=== PATIENT | male | born 1940 | race Caucasian/White ===

== ENCOUNTER 2016-10-02 08:09 | Day surgery (SDC) | payer MEDICARE, MEDICAID ==
[2016-10-02 09:25] VITALS: BMI 30.7
[2016-10-02] MEDS ORDERED: Lactated Ringer's 500 ML IV ONE (11:59)
[2016-10-02] MEDS ORDERED: Propofol 10 mg/ml Inj (20 ML) ONE (12:01)
[2016-10-02 12:09] VITALS: O2SAT 100
[2016-10-02] MEDS ORDERED: Lactated Ringer's 1,000 ML IV SCH (12:15)
[2016-10-02 12:36] VITALS: TEMP 97.4
[2016-10-02 14:54] VITALS: BP 138/79; PULSE 97; RESP 13
== END 2016-10-02 14:50 | disposition home or self-care (01) ==
LOC: C.ENDO 08:09
PROVIDERS: ATTEND Internal Medicine Gastroenterology
DX: K59.00 Constipation, unspecified (principal); K64.8 Other hemorrhoids
CPT/HCPCS: 45378; 82948; J2704; J7120

== ENCOUNTER 2017-04-30 17:40 | Inpatient (IN) | payer MEDICARE, MEDICAID ==
[2017-04-30 17:42] VITALS: BMI 30.7
[2017-04-30] MEDS ORDERED: Sodium Chloride 0.9% 1,000 ML IV ONE (18:35)
[2017-04-30] MEDS ORDERED: Sodium Chloride 0.9% 1,000 ML ONE (18:48)
[2017-04-30 18:54] LABS: EOS # 0.1 K/uL (0.0-0.7); MEAN PLATELET VOLUME 13.3 fL (7.2-11.7); MONO # 0.4 K/uL (0.0-0.8)
[2017-04-30 18:56] LABS: RBC URINE < 1 /hpf (0-3); URINE BILIRUBIN NEGATIVE (NEGATIVE); URINE BLOOD NEGATIVE (NEGATIVE); URINE COLOR Yellow (YELLOW); URINE GLUCOSE (UA) NORMAL (Normal); URINE KETONE NEGATIVE (NEGATIVE); URINE LEUKOCYTE ESTERASE NEG Leu/uL (Negative); URINE PROTEIN NEGATIVE (NEGATIVE); WBC URINE 3 /hpf (0-5)
--- NOTE | 2017-04-30 18:57 | C.PDOC ---
History Of Present Illness 76 y/o male with PMHx of A-fib and DM [facility] Rodriguez with complaints of generalized weakness and lethargy. Patient had labs 2 days ago and hemoglobin was 9, today hemoglobin is 7.5 and he was sent for further evaluation. Patient reports to be sob when he lies flat but denies any chest or abdominal pain. He has chronic constipation but reports normal po intake. No other complaints at this time. Time Seen by Provider: 04/30/17 18:24 Chief Complaint (Nursing): Abnormal Labs History Per: Patient History/Exam Limitations: no limitations Onset/Duration Of Symptoms: Days Current Symptoms Are (Timing): Still Present Past Medical History Reviewed: Historical Data, Nursing Documentation, Vital Signs Vital Signs: Last Vital Signs Temp 97.8 F 04/30/17 17:48 Pulse 105 H 04/30/17 20:35 Resp 29 H 04/30/17 20:35 BP 101/66 04/30/17 20:35 Pulse Ox 100 04/30/17 20:35 - Medical History PMH: Anxiety, Bipolar Disorder, CAD, Cardia Arrhythmia (A FIB), CHF, COPD, Depression, HTN, Hypercholesterolemia, Osteoporosis, Sleep Apnea Surgical History: No Surg Hx - [facility] Procedures INJECT/INFUSE NEC (10/08/14) Family History: States: No Known Family Hx - Social History Hx Alcohol Use: No Hx Substance Use: No Review Of Systems Constitutional: Negative for: Fever, Chills Eyes: Negative for: Vision Change Gastrointestinal: Negative for: Nausea, Vomiting Neurological: Positive for: Weakness. Negative for: Headache, Dizziness Physical Exam - Physical Exam Appears: Non-toxic, No Acute Distress Skin: Warm, Dry, Pale Head: Atraumatic, Normacephalic Eye(s): bilateral: Normal Inspection, EOMI Oral Mucosa: Moist Neck: Normal ROM, Supple Chest: Symmetrical Cardiovascular: Rhythm Irregular, Other (tachycardic) Respiratory: Rales (right side basilar), No Rhonchi, No Wheezing Gastrointestinal/Abdominal: Soft, No Tenderness, No Distention, No Guarding, No Rebound Rectal: Other (black hard stool in rectal vault) Extremity: No Deformity, No Swelling, Other (venous stasis bilat legs, +stasis pigmentation) Extremity: Bilateral: Normal ROM Pulses: Left Dorsalis Pedis: Normal, Right Dorsalis Pedis: Normal Neurological/Psych: Oriented x3, Normal Motor, Normal Sensation ED Course And Treatment - Laboratory Results Result Diagrams: 04/30/17 18:49 04/30/17 18:49 Lab Interpretation: Abnormal (Hgb 7.3, BUN 34, Lactate 2.6, Stool positive for occult blood) ECG: Interpreted By Me ECG Rhythm: Atrial Fibrillation, Atrial Flutter ECG Interpretation: Abnormal Rate From EC O2 Sat by Pulse Oximetry: 100 (RA) Pulse Ox Interpretation: Normal - Radiology CXR: Interpreted by Me CXR Interpretation: Yes: Other (right pleural effusion, elevated left hemidiaphragm) Reevaluation Time: 21:17 Reassessment Condition: Unchanged - Physician Consult Information Physician Contacted: Carlos Pleitez Outcome Of Conversation: Patient to be admitted for GI bleeding with anemia. Evaluation by assistant department manager is requested. Case reviewed with Dr Argueta Disposition - Disposition Disposition: HOSPITALIZED Disposition Time: 21:18 Condition: FAIR - POA Present On Arrival: None - Clinical Impression Clinical Impression: Anemia due to GI blood loss - Scribe Statement The provider has reviewed the documentation as recorded by the Allisonibbj Lou All medical record entries made by the Allisonibbj were at my direction and personally dictated by me. I have reviewed the chart and agree that the record accurately reflects my personal performance of the history, physical exam, medical decision making, and the department course for this patient. I have also personally directed, reviewed, and agree with the discharge instructions and disposition.
[2017-04-30 19:02] LABS: BASO % 0.6 % (0.0-2.0); EOS % 1.8 % (0.0-4.0); HEMATOCRIT 22.2 % (35.0-51.0); LYMPH % 13.7 % (20.0-40.0); MEAN CORPUSCULAR HEMOGLOBIN 31.7 pg (27.0-31.0); MONO % 5.3 % (0.0-10.0); NRBC % 0.7 % (0.0-2.0); RED CELL DISTRIBUTION WIDTH 15.7 % (11.5-14.5); WHITE BLOOD COUNT 7.6 K/uL (4.8-10.8)
[2017-04-30 19:02] LABS: VENOUS BLOOD GAS BASE EXCESS 3.2 mmol/L (0.0-2.0); VENOUS BLOOD GAS PCO2 42 mmHg (40-60); VENOUS BLOOD PH 7.43 (7.32-7.43)
[2017-04-30 19:03] LABS: CHLORIDE 104 mmol/L (98-107)
[2017-04-30 19:04] LABS: POTASSIUM 4.4 mmol/L (3.6-5.2); SODIUM 137 mmol/L (132-148)
[2017-04-30 19:06] LABS: ALKALINE PHOSPHATASE 49 U/L (38-126); AST/SGOT 46 U/L (17-59); BILIRUBIN,TOTAL 0.7 mg/dL (0.2-1.3); BLOOD UREA NITROGEN 34 mg/dL (9-20); CARBON DIOXIDE 24 mmol/L (22-30); GFR AFRICAN-AMERICAN > 60; GLUCOSE,RANDOM 88 mg/dL (75-110); TOTAL PROTEIN 5.6 g/dL (6.3-8.3)
[2017-04-30 19:07] LABS: ALT/SGPT 78 U/L (21-72); CALCIUM 8.4 mg/dl (8.6-10.4)
[2017-04-30] MEDS ORDERED: Pantoprazole 40 mg EC Tab PO STA (21:57)
--- NOTE | 2017-04-30 22:29 | CP.PCM.CON ---
History of Present Illness - History of Present Illness History of Present Illness: called by ER for icu eval 76 y/o male with PMHx of A-fib and DM [facility] Rodriguez with complaints of generalized weakness and lethargy. Patient had labs 2 days ago and hemoglobin was 9, today hemoglobin is 7.5 and he was sent for further evaluation. pt c/o weakness for 1 week he is mostly bedridden not walking he goes to on bed using bedpan c/o severe constipation [place] er evaluated and [place] done showing dark stool and +ve guiac he has no abd pain no nausea no vomiting poorly eating multiple medical problems PMH:Anxiety, Bipolar Disorder, CAD, Cardia Arrhythmia (A FIB), CHF, COPD, Depression, HTN, Hypercholesterolemia, Osteoporosis, Sleep Apnea no surgical problems no recent echo pt is being seen [facility] in the [place] medications noted pt was on eliquis 5mg bid also takes naprosyn prn no h/o gi bleed in the past ROS noted /e: pt is comfortable no distress Temp Pulse Resp BP Pulse Ox 97.8 F 105 H 29 H 101/66 100 04/30/17 17:48 04/30/17 20:35 04/30/17 20:35 04/30/17 20:35 04/30/17 21:19 vitals stable chest good air entry afib abd soft 1+ edema alert and oriented CXR non specific no acute changes noted 04/30/17 18:49 04/30/17 18:49 a/p: pt with afib and multiple medical problems Anxiety, Bipolar Disorder, CAD, Cardia Arrhythmia (A FIB), CHF, COPD, Depression , HTN, Hypercholesterolemia, Osteoporosis, Sleep Apnea and anticoagulation PT and ptt pending no active bleeding now start PPI IV GI eval give 2 units of blood at standard rate recheck H and H GI eval hold anticoagulation and antiplatlets can be managed in the tele. if any decompensation please call ICU reeval Past Patient History - Past Medical History & Family History Past Medical History?: Yes - Past Social History Smoking Status: Never Smoked - CARDIAC Hx Cardia Arrhythmia: Yes (A FIB) Hx Congestive Heart Failure: Yes Hx Hypercholesterolemia: Yes Hx Hypertension: Yes - PULMONARY Hx Chronic Obstructive Pulmonary Disease (COPD): Yes Hx Sleep Apnea: Yes - NEUROLOGICAL HX Cerebrovascular Accident: No Hx Transient Ischemic Attacks (TIA): No - HEENT Hx HEENT Problems: Yes (SIDNEY.) - HEMATOLOGICAL/ONCOLOGICAL Hx Blood Transfusions: No - INTEGUMENTARY Hx Dermatological Problems: Yes Hx Cellulitis: Yes - MUSCULOSKELETAL/RHEUMATOLOGICAL Hx Osteoporosis: Yes - GASTROINTESTINAL Hx Gastrointestinal Disorders: Yes Hx Hemorrhoids: Yes - GENITOURINARY/GYNECOLOGICAL Hx Genitourinary Disorders: Yes Hx Prostate Problems: Yes (BENIGN PROSTATIC HYPERPLASIA) - PSYCHIATRIC Hx Anxiety: Yes Hx Bipolar Disorder: Yes Hx Depression: Yes Hx Substance Use: No - SURGICAL HISTORY Hx Surgeries: No - ANESTHESIA Hx Anesthesia: No (IV SEDATION ONLY) Hx Anesthesia Reactions: No Hx Malignant Hyperthermia: No Meds Allergies/Adverse Reactions: Allergies Allergy/AdvReac Type Severity Reaction Status Date / Time No Known Allergies Allergy Verified 10/02/16 09:25 - Medications Medications: Current Medications Pantoprazole Sodium (Protonix Ec Tab) 40 mg PO BID CUCO Results - Vital Signs Recent Vital Signs: Last Vital Signs Temp 97.8 F 04/30/17 17:48 Pulse 105 H 04/30/17 20:35 Resp 29 H 04/30/17 20:35 BP 101/66 04/30/17 20:35 Pulse Ox 100 04/30/17 21:19 - Labs Result Diagrams: 04/30/17 18:49 04/30/17 18:49 Labs: Laboratory Results - last 24 hr 04/30/17 04/30/17 04/30/17 18:01 18:49 18:49 WBC 7.6 RBC 2.31 L Hgb 7.3 L Hct 22.2 L MCV 96.0 H MCH 31.7 H MCHC 33.0 RDW 15.7 H Plt Count 115 L MPV 13.3 H Neut % (Auto) 78.6 H Lymph % (Auto) 13.7 L [place] % (Auto) 5.3 Eos % (Auto) 1.8 Baso % (Auto) 0.6 Neut # 6.0 Lymph # 1.0 [place] # 0.4 Eos # 0.1 Baso # 0.0 Differential Comment pO2 VBG pH VBG pCO2 VBG HCO3 VBG Total CO2 VBG O2 Sat (Calc) VBG Base Excess VBG Potassium Glucose Lactate Sodium 137 Potassium 4.4 Chloride 104 Carbon Dioxide 24 Anion Gap 13 BUN 34 H Creatinine 0.9 Est GFR ( Amer) > 60 Est GFR (Non-Af Amer) > 60 POC Glucose (mg/dL) 119 H Random Glucose 88 Calcium 8.4 L Total Bilirubin 0.7 AST 46 ALT 78 H Alkaline Phosphatase 49 Total Protein 5.6 L Albumin 2.8 L Globulin 2.8 Albumin/Globulin Ratio 1.0 Venous Blood Potassium Urine Color Urine Clarity Urine pH Ur Specific [place] Urine Protein Urine Glucose (UA) Urine Ketones Urine Blood Urine Nitrate Urine Bilirubin Urine Urobilinogen Ur Leukocyte Esterase Urine WBC (Auto) Urine RBC (Auto) Stool Occult Blood Blood Type Blood Type Confirm Antibody Screen 04/30/17 04/30/17 04/30/17 18:49 18:49 18:55 WBC RBC Hgb Hct MCV MCH MCHC RDW Plt Count MPV Neut % (Auto) Lymph % (Auto) [place] % (Auto) Eos % (Auto) Baso % (Auto) Neut # Lymph # [place] # Eos # Baso # Differential Comment pO2 42 VBG pH 7.43 VBG pCO2 42 VBG HCO3 26.9 VBG Total CO2 29.2 H VBG O2 Sat (Calc) 83.7 H VBG Base Excess 3.2 H VBG Potassium 5.9 H Glucose 98 Lactate 2.6 H Sodium 140.0 Potassium Chloride 113.0 H Carbon Dioxide Anion Gap BUN Creatinine Est GFR ( Amer) Est GFR (Non-Af Amer) POC Glucose (mg/dL) Random Glucose Calcium Total Bilirubin AST ALT Alkaline Phosphatase Total Protein Albumin Globulin Albumin/Globulin Ratio Venous Blood Potassium 5.9 H Urine Color Yellow Urine Clarity Clear Urine pH 5.0 Ur Specific [place] 1.026 Urine Protein Negative Urine Glucose (UA) Normal Urine Ketones Negative Urine Blood Negative Urine Nitrate Negative Urine Bilirubin Negative Urine Urobilinogen 2.0 Ur Leukocyte Esterase Neg Urine WBC (Auto) 3 Urine RBC (Auto) < 1 Stool Occult Blood Blood Type A POSITIVE Blood Type Confirm A POSITIVE Antibody Screen Negative 04/30/17 19:43 WBC RBC Hgb Hct MCV MCH MCHC RDW Plt Count MPV Neut % (Auto) Lymph % (Auto) [place] % (Auto) Eos % (Auto) Baso % (Auto) Neut # Lymph # [place] # Eos # Baso # Differential Comment pO2 VBG pH VBG pCO2 VBG HCO3 VBG Total CO2 VBG O2 Sat (Calc) VBG Base Excess VBG Potassium Glucose Lactate Sodium Potassium Chloride Carbon Dioxide Anion Gap BUN Creatinine Est GFR ( Amer) Est GFR (Non-Af Amer) POC Glucose (mg/dL) Random Glucose Calcium Total Bilirubin AST ALT Alkaline Phosphatase Total Protein Albumin Globulin Albumin/Globulin Ratio Venous Blood Potassium Urine Color Urine Clarity Urine pH Ur Specific [place] Urine Protein Urine Glucose (UA) Urine Ketones Urine Blood Urine Nitrate Urine Bilirubin Urine Urobilinogen Ur Leukocyte Esterase Urine WBC (Auto) Urine RBC (Auto) Stool Occult Blood Positive H Blood Type Blood Type Confirm Antibody Screen
--- NOTE | 2017-04-30 22:47 | CP.PCM.HP ---
<Monique NiceValentina - Last Filed: 04/30/17 23:12> History of Present Illness - History of Present Illness History of Present Illness: Patient is a 76 years old male with a past medical history of a fib, HTN, CAD, CHF, HLD, who presents to the ED from [facility] with complaints of weakness and a low hemoglobin. Patient was sent in by Dr. Marcus for a hemoglobin of 7.3, which dropped from a hgb of 9.2 two days prior. Patient reports he has been feeling weak and lethargic for approximately 1 week. He says he cannot walk because he feels so weak. Patient also reports feeling dizzy , has shortness of breath that worsens when laying down, abdominal pain for the last 3-4 weeks that worsens with constipation, chronic constipation and black stool. He reports he becomes constipated for days, takes milk of magnesia, then has diarrhea, and continues that cycles. He has not had a bowel movement in 2 days. Patient reports he was recently treated for bilateral leg swelling with water pills about 1 month ago, and since then has lost approximately 40lbs. Patient reports he has been bedridden for the past few weeks due to inability to walk. Currently, the patient denies having chest pain, palpitations, cough, nausea, vomiting, fevers, chills, headaches, and leg pain. PMD: Dr. Marcus PMHx: patient denies, but as per EMR- a fib, HTN, CAD, CHF, HLD, depression bipolar disorder, osteoporisis, COPD SurgHx: denies FamHx: Father-eye cancer, Sisters- Breast cancer SocHx: Former tobacco user, quit 1 month ago ([id number]); former social drinker , denies drug use; LIves are [facility]. Allergies: NKDA Medications: See EMR for extensive list. Present on Admission - Present on Admission Any Indicators Present on Admission: No Review of Systems - Constitutional Constitutional: Fatigue, Lethargy, Weight Loss, Weakness. absent: Chills, Fever , Headache - EENT Eyes: absent: Change in Vision Ears: Dizziness - Cardiovascular Cardiovascular: Dyspnea, Lightheadedness. absent: Chest Pain, Irregular Heart Rhythm, Leg Edema, Palpitations, Rapid Heart Rate - Respiratory Respiratory: Dyspnea. absent: Cough - Gastrointestinal Gastrointestinal: Abdominal Pain (mildline suprapubic tenderness), Change in Stool Character (Black stool), Constipation, Melena. absent: Diarrhea, Nausea, Vomiting - Genitourinary Genitourinary: Urinary Frequency. absent: Dysuria, Hematuria - Neurological Neurological: Dizziness, Weakness. absent: Headaches - Endocrine Endocrine: Fatigue. absent: Palpitations - Hematologic/Lymphatic Hematologic: absent: Easy Bleeding, Easy Bruising Past Patient History - Past Medical History & Family History Past Medical History?: Yes - Past Social History Smoking Status: Never Smoked - CARDIAC Hx Cardia Arrhythmia: Yes (A FIB) Hx Congestive Heart Failure: Yes Hx Hypercholesterolemia: Yes Hx Hypertension: Yes - PULMONARY Hx Chronic Obstructive Pulmonary Disease (COPD): Yes Hx Sleep Apnea: Yes - NEUROLOGICAL HX Cerebrovascular Accident: No Hx Transient Ischemic Attacks (TIA): No - HEENT Hx HEENT Problems: Yes (SIDNEY.) - HEMATOLOGICAL/ONCOLOGICAL Hx Blood Transfusions: No - INTEGUMENTARY Hx Dermatological Problems: Yes Hx Cellulitis: Yes - MUSCULOSKELETAL/RHEUMATOLOGICAL Hx Osteoporosis: Yes - GASTROINTESTINAL Hx Gastrointestinal Disorders: Yes Hx Hemorrhoids: Yes - GENITOURINARY/GYNECOLOGICAL Hx Genitourinary Disorders: Yes Hx Prostate Problems: Yes (BENIGN PROSTATIC HYPERPLASIA) - PSYCHIATRIC Hx Anxiety: Yes Hx Bipolar Disorder: Yes Hx Depression: Yes Hx Substance Use: No - SURGICAL HISTORY Hx Surgeries: No - ANESTHESIA Hx Anesthesia: No (IV SEDATION ONLY) Hx Anesthesia Reactions: No Hx Malignant Hyperthermia: No Meds Allergies/Adverse Reactions: Allergies Allergy/AdvReac Type Severity Reaction Status Date / Time No Known Allergies Allergy Verified 10/02/16 09:25 Physical Exam - Head Exam Head Exam: ATRAUMATIC, NORMAL INSPECTION - Eye Exam Eye Exam: EOMI, Normal appearance. absent: Scleral icterus Pupil Exam: PERRL - ENT Exam ENT Exam: Mucous Membranes Dry - Respiratory Exam Respiratory Exam: Decreased Breath Sounds, Rales (B/L lower lobes), NORMAL BREATHING PATTERN. absent: Rhonchi, Wheezes, Respiratory Distress - Cardiovascular Exam Cardiovascular Exam: Tachycardia, Irregular Rhythm, +S1, +S2. absent: Bradycardia - GI/Abdominal Exam GI & Abdominal Exam: Normal Bowel Sounds, Soft, Tenderness (midline, suprapubic ; "sharp" pain with palpation). absent: Distended, Firm, Guarding, Mass - Rectal Exam Rectal Exam: absent: Black Stool, Bloody Stool, Hemorrhoids - Extremities Exam Extremities exam: Positive for: tenderness (B/L), pedal pulses present. Negative for: normal inspection (chronic skin color changes, mild edema) - Neurological Exam Neurological exam: Alert, Oriented x3 - Psychiatric Exam Psychiatric exam: Normal Affect, Normal Mood - Skin Skin Exam: Dry, Intact, Warm Results - Vital Signs Recent Vital Signs: Last Vital Signs Temp 97.8 F 04/30/17 17:48 Pulse 105 H 04/30/17 20:35 Resp 29 H 04/30/17 20:35 BP 101/66 04/30/17 20:35 Pulse Ox 100 04/30/17 21:19 - Labs Result Diagrams: 04/30/17 18:49 04/30/17 18:49 Labs: Laboratory Results - last 24 hr 04/30/17 04/30/17 04/30/17 18:01 18:49 18:49 WBC 7.6 RBC 2.31 L Hgb 7.3 L Hct 22.2 L MCV 96.0 H MCH 31.7 H MCHC 33.0 RDW 15.7 H Plt Count 115 L MPV 13.3 H Neut % (Auto) 78.6 H Lymph % (Auto) 13.7 L Hall % (Auto) 5.3 Eos % (Auto) 1.8 Baso % (Auto) 0.6 Neut # 6.0 Lymph # 1.0 Hall # 0.4 Eos # 0.1 Baso # 0.0 Differential Comment pO2 VBG pH VBG pCO2 VBG HCO3 VBG Total CO2 VBG O2 Sat (Calc) VBG Base Excess VBG Potassium Glucose Lactate Sodium 137 Potassium 4.4 Chloride 104 Carbon Dioxide 24 Anion Gap 13 BUN 34 H Creatinine 0.9 Est GFR ( Amer) > 60 Est GFR (Non-Af Amer) > 60 POC Glucose (mg/dL) 119 H Random Glucose 88 Calcium 8.4 L Total Bilirubin 0.7 AST 46 ALT 78 H Alkaline Phosphatase 49 Total Protein 5.6 L Albumin 2.8 L Globulin 2.8 Albumin/Globulin Ratio 1.0 Venous Blood Potassium Urine Color Urine Clarity Urine pH Ur Specific [place] Urine Protein Urine Glucose (UA) Urine Ketones Urine Blood Urine Nitrate Urine Bilirubin Urine Urobilinogen Ur Leukocyte Esterase Urine WBC (Auto) Urine RBC (Auto) Stool Occult Blood Blood Type Blood Type Confirm Antibody Screen 04/30/17 04/30/1717 18:49 18:49 18:55 WBC RBC Hgb Hct MCV MCH MCHC RDW Plt Count MPV Neut % (Auto) Lymph % (Auto) Hall % (Auto) Eos % (Auto) Baso % (Auto) Neut # Lymph # Hall # Eos # Baso # Differential Comment pO2 42 VBG pH 7.43 VBG pCO2 42 VBG HCO3 26.9 VBG Total CO2 29.2 H VBG O2 Sat (Calc) 83.7 H VBG Base Excess 3.2 H VBG Potassium 5.9 H Glucose 98 Lactate 2.6 H Sodium 140.0 Potassium Chloride 113.0 H Carbon Dioxide Anion Gap BUN Creatinine Est GFR ( Amer) Est GFR (Non-Af Amer) POC Glucose (mg/dL) Random Glucose Calcium Total Bilirubin AST ALT Alkaline Phosphatase Total Protein Albumin Globulin Albumin/Globulin Ratio Venous Blood Potassium 5.9 H Urine Color Yellow Urine Clarity Clear Urine pH 5.0 Ur Specific [place] 1.026 Urine Protein Negative Urine Glucose (UA) Normal Urine Ketones Negative Urine Blood Negative Urine Nitrate Negative Urine Bilirubin Negative Urine Urobilinogen 2.0 Ur Leukocyte Esterase Neg Urine WBC (Auto) 3 Urine RBC (Auto) < 1 Stool Occult Blood Blood Type A POSITIVE Blood Type Confirm A POSITIVE Antibody Screen Negative 04/30/17 19:43 WBC RBC Hgb Hct MCV MCH MCHC RDW Plt Count MPV Neut % (Auto) Lymph % (Auto) Hall % (Auto) Eos % (Auto) Baso % (Auto) Neut # Lymph # Hall # Eos # Baso # Differential Comment pO2 VBG pH VBG pCO2 VBG HCO3 VBG Total CO2 VBG O2 Sat (Calc) VBG Base Excess VBG Potassium Glucose Lactate Sodium Potassium Chloride Carbon Dioxide Anion Gap BUN Creatinine Est GFR ( Amer) Est GFR (Non-Af Amer) POC Glucose (mg/dL) Random Glucose Calcium Total Bilirubin AST ALT Alkaline Phosphatase Total Protein Albumin Globulin Albumin/Globulin Ratio Venous Blood Potassium Urine Color Urine Clarity Urine pH Ur Specific [place] Urine Protein Urine Glucose (UA) Urine Ketones Urine Blood Urine Nitrate Urine Bilirubin Urine Urobilinogen Ur Leukocyte Esterase Urine WBC (Auto) Urine RBC (Auto) Stool Occult Blood Positive H Blood Type Blood Type Confirm Antibody Screen Assessment & Plan (1) Anemia due to GI blood loss Assessment and Plan: Likely secondary to GI bleed Hgb at admission 7.3 Stool Occult positive HOLD Eliquis Transfused 1 unit PRBC Repeat CBC: f/u results PT/PTT: f/u results NPO Gave 1 dose of Protonix 80mg PO. Start Protonix 40mg PO BID tomorrow GI consulted- Dr. Lopez, help appreciated Status: Acute (2) Abdominal pain Assessment and Plan: Patient c/o midline suprapubic/abdominal pain, described as sharp with palpation and worsens with constipation. Ordered Abdomen/Pelvis CT with PO/IV contrast: f/u results Stool occult positive Status: Acute (3) Atrial fibrillation Assessment and Plan: Home medication: Eliquis 5mg PO BID HOLD Eliquis due to anemia, hbg 7.3, GI bleed. Monitor on telemetry. Cardiology consulted- Dr. Espinal, help appreciated EKG: Atrial fibrillation @90bpm Echo: f/u results Status: Acute (4) Shortness of breath Assessment and Plan: Patient uses 2 pillows and elevates the back of bed at home to decrease symptoms of SOB. CXR: f/u results O2 2L via nasal cannula prn Status: Acute (5) Constipation Assessment and Plan: Continue home medications PRN: * Milk of Magnesia 30mg PO HS PRN * Miralax 17gm PO HS * Lactulose 10gm PO daily * DUlcolax 5mg PO HS Status: Acute (6) Elevated alanine aminotransferase (ALT) level Assessment and Plan: ALT 78 AST 46 Hepatitis panel: f/u results Continue to monitor Status: Acute (7) History of tobacco abuse Assessment and Plan: Continue home medication: Nicoderm patch Status: Acute (8) Hyperlipidemia Assessment and Plan: Continue home medication: Fish oil 1 capsule PO BID Status: Acute (9) History of bipolar disorder Assessment and Plan: Continue home medications for bipolar disorder & depression * Abilify 2mg daily * Depakote 125mg PO TID * Lexapro 10mg PO daily Status: Acute (10) Prophylactic measure Assessment and Plan: SCDs Protonix 40mg PO BID HOLD Eliquis due to GI bleed, hgb 7.3 Keep NPO Fall precaution PT/OT Status: Acute <Carlos Pleitez - Last Filed: 05/01/17 06:21> Results - Vital Signs Recent Vital Signs: Last Vital Signs Temp 97.5 F L 05/01/17 04:25 Pulse 87 05/01/17 04:25 Resp 20 05/01/17 04:25 BP 111/68 05/01/17 04:25 Pulse Ox 97 05/01/17 04:25 - Labs Result Diagrams: 04/30/17 18:49 04/30/17 18:49 Labs: Laboratory Results - last 24 hr 04/30/17 04/30/17 04/30/17 18:01 18:49 18:49 WBC 7.6 RBC 2.31 L Hgb 7.3 L Hct 22.2 L MCV 96.0 H MCH 31.7 H MCHC 33.0 RDW 15.7 H Plt Count 115 L MPV 13.3 H Neut % (Auto) 78.6 H Lymph % (Auto) 13.7 L Hall % (Auto) 5.3 Eos % (Auto) 1.8 Baso % (Auto) 0.6 Neut # 6.0 Lymph # 1.0 Hall # 0.4 Eos # 0.1 Baso # 0.0 Differential Comment PT INR APTT pO2 VBG pH VBG pCO2 VBG HCO3 VBG Total CO2 VBG O2 Sat (Calc) VBG Base Excess VBG Potassium Glucose Lactate Sodium 137 Potassium 4.4 Chloride 104 Carbon Dioxide 24 Anion Gap 13 BUN 34 H Creatinine 0.9 Est GFR ( Amer) > 60 Est GFR (Non-Af Amer) > 60 POC Glucose (mg/dL) 119 H Random Glucose 88 Calcium 8.4 L Total Bilirubin 0.7 AST 46 ALT 78 H Alkaline Phosphatase 49 Total Protein 5.6 L Albumin 2.8 L Globulin 2.8 Albumin/Globulin Ratio 1.0 Venous Blood Potassium Urine Color Urine Clarity Urine pH Ur Specific [place] Urine Protein Urine Glucose (UA) Urine Ketones Urine Blood Urine Nitrate Urine Bilirubin Urine Urobilinogen Ur Leukocyte Esterase Urine WBC (Auto) Urine RBC (Auto) Stool Occult Blood Blood Type Blood Type Confirm Antibody Screen 04/30/17 04/30/17 04/30/17 18:49 18:49 18:55 WBC RBC Hgb Hct MCV MCH MCHC RDW Plt Count MPV Neut % (Auto) Lymph % (Auto) Hall % (Auto) Eos % (Auto) Baso % (Auto) Neut # Lymph # Hall # Eos # Baso # Differential Comment PT INR APTT pO2 42 VBG pH 7.43 VBG pCO2 42 VBG HCO3 26.9 VBG Total CO2 29.2 H VBG O2 Sat (Calc) 83.7 H VBG Base Excess 3.2 H VBG Potassium 5.9 H Glucose 98 Lactate 2.6 H Sodium 140.0 Potassium Chloride 113.0 H Carbon Dioxide Anion Gap BUN Creatinine Est GFR ( Amer) Est GFR (Non-Af Amer) POC Glucose (mg/dL) Random Glucose Calcium Total Bilirubin AST ALT Alkaline Phosphatase Total Protein Albumin Globulin Albumin/Globulin Ratio Venous Blood Potassium 5.9 H Urine Color Yellow Urine Clarity Clear Urine pH 5.0 Ur Specific [place] 1.026 Urine Protein Negative Urine Glucose (UA) Normal Urine Ketones Negative Urine Blood Negative Urine Nitrate Negative Urine Bilirubin Negative Urine Urobilinogen 2.0 Ur Leukocyte Esterase Neg Urine WBC (Auto) 3 Urine RBC (Auto) < 1 Stool Occult Blood Blood Type A POSITIVE Blood Type Confirm A POSITIVE Antibody Screen Negative 04/30/17 04/30/17 19:43 22:40 WBC RBC Hgb Hct MCV MCH MCHC RDW Plt Count MPV Neut % (Auto) Lymph % (Auto) Hall % (Auto) Eos % (Auto) Baso % (Auto) Neut # Lymph # Hall # Eos # Baso # Differential Comment PT 13.2 H INR 1.2 APTT 27 pO2 VBG pH VBG pCO2 VBG HCO3 VBG Total CO2 VBG O2 Sat (Calc) VBG Base Excess VBG Potassium Glucose Lactate Sodium Potassium Chloride Carbon Dioxide Anion Gap BUN Creatinine Est GFR ( Amer) Est GFR (Non-Af Amer) POC Glucose (mg/dL) Random Glucose Calcium Total Bilirubin AST ALT Alkaline Phosphatase Total Protein Albumin Globulin Albumin/Globulin Ratio Venous Blood Potassium Urine Color Urine Clarity Urine pH Ur Specific [place] Urine Protein Urine Glucose (UA) Urine Ketones Urine Blood Urine Nitrate Urine Bilirubin Urine Urobilinogen Ur Leukocyte Esterase Urine WBC (Auto) Urine RBC (Auto) Stool Occult Blood Positive H Blood Type Blood Type Confirm Antibody Screen Assessment & Plan - Date & Time Date: 05/01/17 (I have seen and examined the patient. I agree with the findings and plan of care as documented by Dr. Nice. Patient with GI bleed. Consult to GI. Protonix. Monitor for changes in hemodynamic stability. Symptomatic anemia. Transfuse 1 unit of PRBC. Recheck CBC. Also with history of Atrial fib. Hold anticoagulation. Monitor for acute changes.) Time: 06:19 Attending/Attestation - Attestation I have personally seen and examined this patient.: Yes I have fully participated in the care of the patient.: Yes I have reviewed all pertinent clinical information: Yes
[2017-04-30 22:56] LABS: INR 1.2
[2017-04-30] MEDS ORDERED: Magnesium Hydroxide Susp 30 ml UD PO PRN (23:35)
[2017-04-30] MEDS ORDERED: Albumin Human 5% (12.5 gm/250 ml) IV ONE (23:38)
[2017-05-01 07:11] LABS: INR 1.2
[2017-05-01 07:20] LABS: CHLORIDE 107 mmol/L (98-107); SODIUM 139 mmol/L (132-148)
[2017-05-01 07:21] LABS: POTASSIUM 4.3 mmol/L (3.6-5.2)
[2017-05-01 07:23] LABS: ALKALINE PHOSPHATASE 43 U/L (38-126); ALT/SGPT 69 U/L (21-72); AST/SGOT 36 U/L (17-59); BILIRUBIN,TOTAL 0.8 mg/dL (0.2-1.3); BLOOD UREA NITROGEN 30 mg/dL (9-20); CARBON DIOXIDE 26 mmol/L (22-30); GFR AFRICAN-AMERICAN > 60; GLUCOSE,RANDOM 77 mg/dL (75-110); TOTAL PROTEIN 5.2 g/dL (6.3-8.3)
[2017-05-01 07:24] LABS: CALCIUM 7.9 mg/dl (8.6-10.4)
[2017-05-01 07:29] LABS: BASO % 0.6 % (0.0-2.0); EOS # 0.1 K/uL (0.0-0.7); EOS % 2.9 % (0.0-4.0); HEMATOCRIT 21.9 % (35.0-51.0); LYMPH # 0.8 K/uL (1.0-4.3); LYMPH % 15.9 % (20.0-40.0); MEAN CELL VOLUME 93.6 fL (80.0-94.0); MEAN CORPUSCULAR HGB CONC 33.2 g/dL (33.0-37.0); MEAN PLATELET VOLUME 13.3 fL (7.2-11.7); MONO # 0.4 K/uL (0.0-0.8); MONO % 7.8 % (0.0-10.0); NRBC % 0.3 % (0.0-2.0); RED CELL DISTRIBUTION WIDTH 17.5 % (11.5-14.5); WHITE BLOOD COUNT 4.9 K/uL (4.8-10.8)
[2017-05-01] MEDS ORDERED: Iohexol 240 (50 ml) PO ONE (08:00)
--- NOTE | 2017-05-01 08:06 | RAD ---
PROCEDURE: CHEST RADIOGRAPH, 1 VIEW HISTORY: SOB COMPARISON: None available. FINDINGS: LUNGS: Shallow lung volumes. Left costophrenic angle is excluded from the exam. No dense consolidation PLEURA: No pneumothorax. Small right pleural effusion pleural thickening possible. Left costophrenic angle excluded from exam CARDIOVASCULAR: Mild cardial. Probable top-normal pulmonary venous prominence OSSEOUS STRUCTURES: Bilateral shoulder arthrosis. Thoracic spondylosis lateral left clavicle asymmetrical density - -possible old healed fracture here VISUALIZED UPPER ABDOMEN: Normal. OTHER FINDINGS: None. IMPRESSION: Limited exam-shallow lung volumes and excluded left costophrenic angle Small right pleural effusion / thickening Cardiomegaly
[2017-05-01] MEDS: Pantoprazole 40 mg EC Tab PO SCH ×2 (10:23→18:28)
[2017-05-01] MEDS: Divalproex 125 mg DR Tab PO SCH ×3 (10:23→18:27)
[2017-05-01] MEDS: Omega-3-Acid Ethyl Esters 1 GM Cap PO SCH ×2 (10:23→18:27)
[2017-05-01] MEDS ORDERED: Iodixanol 320 MG/ML 100 ML BOTTLE IV ONE (11:06)
[2017-05-01] MEDS: Sodium Chloride 0.9% 1,000 ML IV SCH (11:28)
--- NOTE | 2017-05-01 13:01 | CP.PCM.CON ---
<Katlin Salazar - Last Filed: 05/01/17 14:28> History of Present Illness - History of Present Illness History of Present Illness: Gastroenterology Fellow/PGY5 Consult Note 76 year old male with history of Atrial fibrillation on Eliquis, Hypertension, Hyperlipidemia, CAD, Diabetes, Depression, BiPolar disorder, osteoporosis, and constipation presenting from nursing facility due to anemia. Patient notes having black diarrhea five days ago for two days. He denies bowel movement for the last 3-4 days. Baseline bowel habit every 3-4 days associated with straining and usually dark brown that he attributes to prune juice. He notes vague bilateral lower quadrant constant abdominal pain for the last month, pain scale 5/10 that is not relieved by bowel habit. Associated loss of appetite for the last four days. Denies nausea, vomiting, hematemesis, acid reflux, bloating , indigestion, hematochezia, or unintentional weight loss. Prior colonoscopy 2016 showed poor prep. Family- Father- eye cancer, sister- breast cancer Social -50 pack year (quit 10 years), former social drinker, denies illicit drug use Surgery- none Review of Systems - Review of Systems Review of Systems: 12-point review of systems negative except for as above Past Patient History - Past Medical History & Family History Past Medical History?: Yes - Past Social History Smoking Status: Never Smoked - CARDIAC Hx Cardia Arrhythmia: Yes (A FIB) Hx Congestive Heart Failure: Yes Hx Hypercholesterolemia: Yes Hx Hypertension: Yes - PULMONARY Hx Chronic Obstructive Pulmonary Disease (COPD): Yes Hx Sleep Apnea: Yes - NEUROLOGICAL HX Cerebrovascular Accident: No Hx Transient Ischemic Attacks (TIA): No - HEENT Hx HEENT Problems: Yes (SIDNEY.) - RENAL Hx Chronic Kidney Disease: No - ENDOCRINE/METABOLIC Hx Endocrine Disorders: No - HEMATOLOGICAL/ONCOLOGICAL Hx Blood Transfusions: No - INTEGUMENTARY Hx Dermatological Problems: Yes Hx Cellulitis: Yes - MUSCULOSKELETAL/RHEUMATOLOGICAL Hx Osteoporosis: Yes - GASTROINTESTINAL Hx Gastrointestinal Disorders: Yes Hx Hemorrhoids: Yes - GENITOURINARY/GYNECOLOGICAL Hx Genitourinary Disorders: Yes Hx Prostate Problems: Yes (BENIGN PROSTATIC HYPERPLASIA) - PSYCHIATRIC Hx Anxiety: Yes Hx Bipolar Disorder: Yes Hx Depression: Yes Hx Substance Use: No - SURGICAL HISTORY Hx Surgeries: No - ANESTHESIA Hx Anesthesia: No (IV SEDATION ONLY) Hx Anesthesia Reactions: No Hx Malignant Hyperthermia: No Meds Allergies/Adverse Reactions: Allergies Allergy/AdvReac Type Severity Reaction Status Date / Time No Known Allergies Allergy Verified 10/02/16 09:25 - Medications Medications: Current Medications Aripiprazole (Abilify) 1 mg PO DAILY [facility] Last Admin: 05/01/17 11:23 Dose: Not Given Bisacodyl (Dulcolax) 5 mg PO HS [facility] Divalproex Sodium (Depakote Dr Tab) 125 mg PO TID [facility] Last Admin: 05/01/17 10:23 Dose: Not Given Escitalopram Oxalate (Lexapro) 10 mg PO DAILY [facility] Last Admin: 05/01/17 10:23 Dose: Not Given Sodium Chloride (Sodium Chloride 0.9%) 1,000 mls @ 60 mls/hr IV .[id number] [facility] Last Admin: 05/01/17 11:28 Dose: 60 mls/hr Magnesium Hydroxide (Milk Of Magnesia) 30 ml PO HS PRN PRN Reason: Constipation Nicotine (Nicoderm Cq) 1 patch TD DAILY [facility] Last Admin: 05/01/17 10:23 Dose: Not Given [id number] Ethyl Esters (Lovaza) 1,000 gm PO BID [facility] Last Admin: 05/01/17 10:23 Dose: Not Given Pantoprazole Sodium (Protonix Ec Tab) 40 mg PO BID [facility] Last Admin: 05/01/17 10:23 Dose: Not Given Physical Exam - Constitutional Appears: Non-toxic, No Acute Distress - Head Exam Head Exam: ATRAUMATIC, NORMOCEPHALIC - Eye Exam Eye Exam: EOMI, PERRL. absent: Scleral icterus Pupil Exam: PERRL. absent: Miosis, Mydriatic - ENT Exam ENT Exam: Mucous Membranes Moist, Normal Oropharynx - Neck Exam Neck exam: Positive for: Full Rom, Normal Inspection - Respiratory Exam Respiratory Exam: Clear to Auscultation Bilateral. absent: Rales, Rhonchi, Wheezes - Cardiovascular Exam Cardiovascular Exam: RRR, +S1, +S2. absent: Gallop, Rubs - GI/Abdominal Exam GI & Abdominal Exam: Normal Bowel Sounds, Soft, Tenderness. absent: Distended, Firm, Guarding, Organomegaly, Rebound, Rigid Additional comments: diffuse discomfort to palpation - Rectal Exam Rectal Exam: Black Stool. absent: Fecal Impaction - Extremities Exam Extremities exam: Positive for: normal inspection, pedal edema - Neurological Exam Neurological exam: Oriented x3 - Psychiatric Exam Psychiatric exam: Normal Affect, Normal Mood - Skin Skin Exam: Dry, Intact, Normal Color, Warm Results - Vital Signs Recent Vital Signs: Last Vital Signs Temp 98.6 F 05/01/17 08:28 Pulse 102 H 05/01/17 08:28 Resp 20 05/01/17 08:28 BP 101/65 05/01/17 08:28 Pulse Ox 100 05/01/17 08:28 - Labs Result Diagrams: 05/01/17 06:45 05/01/17 06:45 Labs: Laboratory Results - last 24 hr 04/30/17 04/30/17 04/30/17 18:01 18:49 18:49 WBC 7.6 RBC 2.31 L Hgb 7.3 L Hct 22.2 L MCV 96.0 H MCH 31.7 H MCHC 33.0 RDW 15.7 H Plt Count 115 L MPV 13.3 H Neut % (Auto) 78.6 H Lymph % (Auto) 13.7 L [place] % (Auto) 5.3 Eos % (Auto) 1.8 Baso % (Auto) 0.6 Neut # 6.0 Lymph # 1.0 [place] # 0.4 Eos # 0.1 Baso # 0.0 Differential Comment PT INR APTT pO2 VBG pH VBG pCO2 VBG HCO3 VBG Total CO2 VBG O2 Sat (Calc) VBG Base Excess VBG Potassium Glucose Lactate Sodium 137 Potassium 4.4 Chloride 104 Carbon Dioxide 24 Anion Gap 13 BUN 34 H Creatinine 0.9 Est GFR ( Amer) > 60 Est GFR (Non-Af Amer) > 60 POC Glucose (mg/dL) 119 H Random Glucose 88 Hemoglobin A1c Calcium 8.4 L Total Bilirubin 0.7 AST 46 ALT 78 H Alkaline Phosphatase 49 Total Protein 5.6 L Albumin 2.8 L Globulin 2.8 Albumin/Globulin Ratio 1.0 Venous Blood Potassium Urine Color Urine Clarity Urine pH Ur Specific [place] Urine Protein Urine Glucose (UA) Urine Ketones Urine Blood Urine Nitrate Urine Bilirubin Urine Urobilinogen Ur Leukocyte Esterase Urine WBC (Auto) Urine RBC (Auto) Stool Occult Blood Hepatitis A IgM Ab Hep Bs Antigen Hep B Core IgM Ab Hepatitis C Antibody Blood Type Blood Type Confirm Antibody Screen 04/30/17 04/30/17 04/30/17 18:49 18:49 18:55 WBC RBC Hgb Hct MCV MCH MCHC RDW Plt Count MPV Neut % (Auto) Lymph % (Auto) [place] % (Auto) Eos % (Auto) Baso % (Auto) Neut # Lymph # [place] # Eos # Baso # Differential Comment PT INR APTT pO2 42 VBG pH 7.43 VBG pCO2 42 VBG HCO3 26.9 VBG Total CO2 29.2 H VBG O2 Sat (Calc) 83.7 H VBG Base Excess 3.2 H VBG Potassium 5.9 H Glucose 98 Lactate 2.6 H Sodium 140.0 Potassium Chloride 113.0 H Carbon Dioxide Anion Gap BUN Creatinine Est GFR ( Amer) Est GFR (Non-Af Amer) POC Glucose (mg/dL) Random Glucose Hemoglobin A1c Calcium Total Bilirubin AST ALT Alkaline Phosphatase Total Protein Albumin Globulin Albumin/Globulin Ratio Venous Blood Potassium 5.9 H Urine Color Yellow Urine Clarity Clear Urine pH 5.0 Ur Specific [place] 1.026 Urine Protein Negative Urine Glucose (UA) Normal Urine Ketones Negative Urine Blood Negative Urine Nitrate Negative Urine Bilirubin Negative Urine Urobilinogen 2.0 Ur Leukocyte Esterase Neg Urine WBC (Auto) 3 Urine RBC (Auto) < 1 Stool Occult Blood Hepatitis A IgM Ab Hep Bs Antigen Hep B Core IgM Ab Hepatitis C Antibody Blood Type A POSITIVE Blood Type Confirm A POSITIVE Antibody Screen Negative 04/30/17 04/30/17 05/01/17 19:43 22:40 06:45 WBC 4.9 RBC 2.34 L Hgb 7.3 L Hct 21.9 L MCV 93.6 D MCH 31.0 MCHC 33.2 RDW 17.5 H Plt Count 93 L D MPV 13.3 H Neut % (Auto) 72.8 Lymph % (Auto) 15.9 L [place] % (Auto) 7.8 Eos % (Auto) 2.9 Baso % (Auto) 0.6 Neut # 3.6 Lymph # 0.8 L [place] # 0.4 Eos # 0.1 Baso # 0.0 Differential Comment PT 13.2 H INR 1.2 APTT 27 pO2 VBG pH VBG pCO2 VBG HCO3 VBG Total CO2 VBG O2 Sat (Calc) VBG Base Excess VBG Potassium Glucose Lactate Sodium Potassium Chloride Carbon Dioxide Anion Gap BUN Creatinine Est GFR ( Amer) Est GFR (Non-Af Amer) POC Glucose (mg/dL) Random Glucose Hemoglobin A1c Calcium Total Bilirubin AST ALT Alkaline Phosphatase Total Protein Albumin Globulin Albumin/Globulin Ratio Venous Blood Potassium Urine Color Urine Clarity Urine pH Ur Specific [place] Urine Protein Urine Glucose (UA) Urine Ketones Urine Blood Urine Nitrate Urine Bilirubin Urine Urobilinogen Ur Leukocyte Esterase Urine WBC (Auto) Urine RBC (Auto) Stool Occult Blood Positive H Hepatitis A IgM Ab Hep Bs Antigen Hep B Core IgM Ab Hepatitis C Antibody Blood Type Blood Type Confirm Antibody Screen 05/01/17 05/01/17 05/01/17 06:45 06:45 06:45 WBC RBC Hgb Hct MCV MCH MCHC RDW Plt Count MPV Neut % (Auto) Lymph % (Auto) [place] % (Auto) Eos % (Auto) Baso % (Auto) Neut # Lymph # [place] # Eos # Baso # Differential Comment PT 13.1 H INR 1.2 APTT 26 pO2 VBG pH VBG pCO2 VBG HCO3 VBG Total CO2 VBG O2 Sat (Calc) VBG Base Excess VBG Potassium Glucose Lactate Sodium 139 Potassium 4.3 Chloride 107 Carbon Dioxide 26 Anion Gap 10 BUN 30 H Creatinine 0.9 Est GFR ( Amer) > 60 Est GFR (Non-Af Amer) > 60 POC Glucose (mg/dL) Random Glucose 77 Hemoglobin A1c 5.2 Calcium 7.9 L Total Bilirubin 0.8 AST 36 ALT 69 Alkaline Phosphatase 43 Total Protein 5.2 L Albumin 2.6 L Globulin 2.6 Albumin/Globulin Ratio 1.0 Venous Blood Potassium Urine Color Urine Clarity Urine pH Ur Specific [place] Urine Protein Urine Glucose (UA) Urine Ketones Urine Blood Urine Nitrate Urine Bilirubin Urine Urobilinogen Ur Leukocyte Esterase Urine WBC (Auto) Urine RBC (Auto) Stool Occult Blood Hepatitis A IgM Ab Hep Bs Antigen Hep B Core IgM Ab Hepatitis C Antibody Blood Type Blood Type Confirm Antibody Screen 05/01/17 06:45 WBC RBC Hgb Hct MCV MCH MCHC RDW Plt Count MPV Neut % (Auto) Lymph % (Auto) [place] % (Auto) Eos % (Auto) Baso % (Auto) Neut # Lymph # [place] # Eos # Baso # Differential Comment PT INR APTT pO2 VBG pH VBG pCO2 VBG HCO3 VBG Total CO2 VBG O2 Sat (Calc) VBG Base Excess VBG Potassium Glucose Lactate Sodium Potassium Chloride Carbon Dioxide Anion Gap BUN Creatinine Est GFR ( Amer) Est GFR (Non-Af Amer) POC Glucose (mg/dL) Random Glucose Hemoglobin A1c Calcium Total Bilirubin AST ALT Alkaline Phosphatase Total Protein Albumin Globulin Albumin/Globulin Ratio Venous Blood Potassium Urine Color Urine Clarity Urine pH Ur Specific [place] Urine Protein Urine Glucose (UA) Urine Ketones Urine Blood Urine Nitrate Urine Bilirubin Urine Urobilinogen Ur Leukocyte Esterase Urine WBC (Auto) Urine RBC (Auto) Stool Occult Blood Hepatitis A IgM Ab Negative Hep Bs Antigen Negative Hep B Core IgM Ab Negative Hepatitis C Antibody Negative Blood Type Blood Type Confirm Antibody Screen Assessment & Plan - Assessment and Plan (Free Text) Assessment: 76 year old male with history of Atrial fibrillation on Eliquis, Hypertension, Hyperlipidemia, CAD, Diabetes, Depression, BiPolar disorder, osteoporosis, and constipation presenting from nursing facility due to black stools and anemia. Active treatment of acute anemia with black stools concerning for upper GI bleed. Prior colonoscopy September 2016 showed poor prep and incomplete exam to sigmoid colon. Plan: >receiving 2nd unit pRBC >goal Hb>8 >rectal exam- black stool (not tarry) >last dose of Eliquis- 04/27/17 >CT A/P showed no acute pathology >hemodynamically stable >PPI BID >clear liquid diet, NPO after midnight >EGD Friday >will benefit from eventual repeat colonoscopy given previous poor prep >further recommendations after EGD tomorrow <Stephan Lewis - Last Filed: 05/01/17 15:16> Meds - Medications Medications: Current Medications Aripiprazole (Abilify) 1 mg PO DAILY [facility] Last Admin: 05/01/17 11:23 Dose: Not Given Bisacodyl (Dulcolax) 5 mg PO HS [facility] Divalproex Sodium (Depakote Dr Tab) 125 mg PO TID [facility] Last Admin: 05/01/17 13:45 Dose: 125 mg Escitalopram Oxalate (Lexapro) 10 mg PO DAILY [facility] Last Admin: 05/01/17 10:23 Dose: Not Given Sodium Chloride (Sodium Chloride 0.9%) 1,000 mls @ 60 mls/hr IV .[id number] [facility] Last Admin: 05/01/17 11:28 Dose: 60 mls/hr Magnesium Hydroxide (Milk Of Magnesia) 30 ml PO HS PRN PRN Reason: Constipation Nicotine (Nicoderm Cq) 1 patch TD DAILY [facility] Last Admin: 05/01/17 10:30 Dose: 1 patch [id number] Ethyl Esters (Lovaza) 1,000 gm PO BID [facility] Last Admin: 05/01/17 10:23 Dose: Not Given Pantoprazole Sodium (Protonix Ec Tab) 40 mg PO BID [facility] Last Admin: 05/01/17 10:23 Dose: Not Given Results - Vital Signs Recent Vital Signs: Last Vital Signs Temp 97.3 F L 05/01/17 15:03 Pulse 80 05/01/17 15:03 Resp 29 H 05/01/17 15:03 BP 107/57 L 05/01/17 15:03 Pulse Ox 100 05/01/17 08:28 - Labs Result Diagrams: 05/01/17 06:45 05/01/17 06:45 Labs: Laboratory Results - last 24 hr 04/30/17 04/30/17 04/30/17 18:01 18:49 18:49 WBC 7.6 RBC 2.31 L Hgb 7.3 L Hct 22.2 L MCV 96.0 H MCH 31.7 H MCHC 33.0 RDW 15.7 H Plt Count 115 L MPV 13.3 H Neut % (Auto) 78.6 H Lymph % (Auto) 13.7 L [place] % (Auto) 5.3 Eos % (Auto) 1.8 Baso % (Auto) 0.6 Neut # 6.0 Lymph # 1.0 [place] # 0.4 Eos # 0.1 Baso # 0.0 Differential Comment PT INR APTT pO2 VBG pH VBG pCO2 VBG HCO3 VBG Total CO2 VBG O2 Sat (Calc) VBG Base Excess VBG Potassium Glucose Lactate Sodium 137 Potassium 4.4 Chloride 104 Carbon Dioxide 24 Anion Gap 13 BUN 34 H Creatinine 0.9 Est GFR ( Amer) > 60 Est GFR (Non-Af Amer) > 60 POC Glucose (mg/dL) 119 H Random Glucose 88 Hemoglobin A1c Calcium 8.4 L Total Bilirubin 0.7 AST 46 ALT 78 H Alkaline Phosphatase 49 Total Protein 5.6 L Albumin 2.8 L Globulin 2.8 Albumin/Globulin Ratio 1.0 Venous Blood Potassium Urine Color Urine Clarity Urine pH Ur Specific [place] Urine Protein Urine Glucose (UA) Urine Ketones Urine Blood Urine Nitrate Urine Bilirubin Urine Urobilinogen Ur Leukocyte Esterase Urine WBC (Auto) Urine RBC (Auto) Stool Occult Blood Hepatitis A IgM Ab Hep Bs Antigen Hep B Core IgM Ab Hepatitis C Antibody Blood Type Blood Type Confirm Antibody Screen 04/30/17 04/30/17 04/30/17 18:49 18:49 18:55 WBC RBC Hgb Hct MCV MCH MCHC RDW Plt Count MPV Neut % (Auto) Lymph % (Auto) [place] % (Auto) Eos % (Auto) Baso % (Auto) Neut # Lymph # [place] # Eos # Baso # Differential Comment PT INR APTT pO2 42 VBG pH 7.43 VBG pCO2 42 VBG HCO3 26.9 VBG Total CO2 29.2 H VBG O2 Sat (Calc) 83.7 H VBG Base Excess 3.2 H VBG Potassium 5.9 H Glucose 98 Lactate 2.6 H Sodium 140.0 Potassium Chloride 113.0 H Carbon Dioxide Anion Gap BUN Creatinine Est GFR ( Amer) Est GFR (Non-Af Amer) POC Glucose (mg/dL) Random Glucose Hemoglobin A1c Calcium Total Bilirubin AST ALT Alkaline Phosphatase Total Protein Albumin Globulin Albumin/Globulin Ratio Venous Blood Potassium 5.9 H Urine Color Yellow Urine Clarity Clear Urine pH 5.0 Ur Specific [place] 1.026 Urine Protein Negative Urine Glucose (UA) Normal Urine Ketones Negative Urine Blood Negative Urine Nitrate Negative Urine Bilirubin Negative Urine Urobilinogen 2.0 Ur Leukocyte Esterase Neg Urine WBC (Auto) 3 Urine RBC (Auto) < 1 Stool Occult Blood Hepatitis A IgM Ab Hep Bs Antigen Hep B Core IgM Ab Hepatitis C Antibody Blood Type A POSITIVE Blood Type Confirm A POSITIVE Antibody Screen Negative 04/30/17 04/30/17 05/01/17 19:43 22:40 06:45 WBC 4.9 RBC 2.34 L Hgb 7.3 L Hct 21.9 L MCV 93.6 D MCH 31.0 MCHC 33.2 RDW 17.5 H Plt Count 93 L D MPV 13.3 H Neut % (Auto) 72.8 Lymph % (Auto) 15.9 L [place] % (Auto) 7.8 Eos % (Auto) 2.9 Baso % (Auto) 0.6 Neut # 3.6 Lymph # 0.8 L [place] # 0.4 Eos # 0.1 Baso # 0.0 Differential Comment PT 13.2 H INR 1.2 APTT 27 pO2 VBG pH VBG pCO2 VBG HCO3 VBG Total CO2 VBG O2 Sat (Calc) VBG Base Excess VBG Potassium Glucose Lactate Sodium Potassium Chloride Carbon Dioxide Anion Gap BUN Creatinine Est GFR ( Amer) Est GFR (Non-Af Amer) POC Glucose (mg/dL) Random Glucose Hemoglobin A1c Calcium Total Bilirubin AST ALT Alkaline Phosphatase Total Protein Albumin Globulin Albumin/Globulin Ratio Venous Blood Potassium Urine Color Urine Clarity Urine pH Ur Specific [place] Urine Protein Urine Glucose (UA) Urine Ketones Urine Blood Urine Nitrate Urine Bilirubin Urine Urobilinogen Ur Leukocyte Esterase Urine WBC (Auto) Urine RBC (Auto) Stool Occult Blood Positive H Hepatitis A IgM Ab Hep Bs Antigen Hep B Core IgM Ab Hepatitis C Antibody Blood Type Blood Type Confirm Antibody Screen 05/01/17 05/01/17 05/01/17 06:45 06:45 06:45 WBC RBC Hgb Hct MCV MCH MCHC RDW Plt Count MPV Neut % (Auto) Lymph % (Auto) [place] % (Auto) Eos % (Auto) Baso % (Auto) Neut # Lymph # [place] # Eos # Baso # Differential Comment PT 13.1 H INR 1.2 APTT 26 pO2 VBG pH VBG pCO2 VBG HCO3 VBG Total CO2 VBG O2 Sat (Calc) VBG Base Excess VBG Potassium Glucose Lactate Sodium 139 Potassium 4.3 Chloride 107 Carbon Dioxide 26 Anion Gap 10 BUN 30 H Creatinine 0.9 Est GFR ( Amer) > 60 Est GFR (Non-Af Amer) > 60 POC Glucose (mg/dL) Random Glucose 77 Hemoglobin A1c 5.2 Calcium 7.9 L Total Bilirubin 0.8 AST 36 ALT 69 Alkaline Phosphatase 43 Total Protein 5.2 L Albumin 2.6 L Globulin 2.6 Albumin/Globulin Ratio 1.0 Venous Blood Potassium Urine Color Urine Clarity Urine pH Ur Specific [place] Urine Protein Urine Glucose (UA) Urine Ketones Urine Blood Urine Nitrate Urine Bilirubin Urine Urobilinogen Ur Leukocyte Esterase Urine WBC (Auto) Urine RBC (Auto) Stool Occult Blood Hepatitis A IgM Ab Hep Bs Antigen Hep B Core IgM Ab Hepatitis C Antibody Blood Type Blood Type Confirm Antibody Screen 05/01/17 06:45 WBC RBC Hgb Hct MCV MCH MCHC RDW Plt Count MPV Neut % (Auto) Lymph % (Auto) [place] % (Auto) Eos % (Auto) Baso % (Auto) Neut # Lymph # [place] # Eos # Baso # Differential Comment PT INR APTT pO2 VBG pH VBG pCO2 VBG HCO3 VBG Total CO2 VBG O2 Sat (Calc) VBG Base Excess VBG Potassium Glucose Lactate Sodium Potassium Chloride Carbon Dioxide Anion Gap BUN Creatinine Est GFR ( Amer) Est GFR (Non-Af Amer) POC Glucose (mg/dL) Random Glucose Hemoglobin A1c Calcium Total Bilirubin AST ALT Alkaline Phosphatase Total Protein Albumin Globulin Albumin/Globulin Ratio Venous Blood Potassium Urine Color Urine Clarity Urine pH Ur Specific [place] Urine Protein Urine Glucose (UA) Urine Ketones Urine Blood Urine Nitrate Urine Bilirubin Urine Urobilinogen Ur Leukocyte Esterase Urine WBC (Auto) Urine RBC (Auto) Stool Occult Blood Hepatitis A IgM Ab Negative Hep Bs Antigen Negative Hep B Core IgM Ab Negative Hepatitis C Antibody Negative Blood Type Blood Type Confirm Antibody Screen Attending/Attestation - Attestation I have personally seen and examined this patient.: Yes I have fully participated in the care of the patient.: Yes I have reviewed all pertinent clinical information: Yes Notes (Text): 05/01/17 15:08 I have seen and examined patient with GI fellow. Agree with above documentation with the following additions. In brief, this is a 76 year old male with history of obesity, atrial fibrillation on eliquis, HTN, DM who is sent from nursing facility for evaluation of worsening anemia in the setting of dark stools. He reports dark black colored stool for the past 3 days along with loose consistency which he attributes to use of prune juice which he takes for management of chronic constipation. He denies abdominal pain, nausea, vomiting, fever/chills, NSAID use, or weight loss. He had an attempted colonoscopy earlier this year in September 2016 which was aborted due to poor bowel preparation. He was asked to repeat in 3 months but did not follow through. HTN DM Atrial fibrillation on Eliquis (held since 04/28) Progressive normocytic anemia, stool occult blood positive - Clear liquid diet as tolerated - Patient currently receiving 1 unit PRBC transfusion, continue to monitor H/H - Continue with PPI therapy - CT imaging ordered by medical team, follow up results - Will plan for EGD evaluation tomorrow given worsening anemia with presence of melena, rule out upper GI bleeding source - Patient will also repeat colonoscopy given incomplete procedure previously in order to exclude for underlying malignancy. NPO after midnight, will continue to monitor patient clinical course
--- NOTE | 2017-05-01 13:41 | CT ---
PROCEDURE: CT Abdomen and Pelvis with contrast HISTORY: Abdominal pain COMPARISON: Comparison is made to the previous study dated 08/30/2016 TECHNIQUE: Contrast dose: 100 mL Visipaque 320. Axial and reformatted coronal and sagittal CT images of the abdomen and pelvis were obtained after IV contrast administration. Radiation dose: Total exam DLP = 1119.62 mGy-cm. This CT exam was performed using one or more of the following dose reduction techniques: Automated exposure control, adjustment of the mA and/or kV according to patient size, and/or use of iterative reconstruction technique. FINDINGS: LOWER THORAX: Re- demonstration of round consolidation/ mass like structure at the right lower lobe has not significantly changed since the previous exam and may represent round atelectasis. Re- demonstration of small right pleural effusion and pleural thickening. Trace left pleural effusion and or pleural thickening is also noted on the left. Cardiomegaly. LIVER: Unremarkable. No gross lesion or ductal dilatation. GALLBLADDER AND BILE DUCTS: Unremarkable. PANCREAS: Unremarkable. No gross lesion or ductal dilatation. SPLEEN: Unremarkable. ADRENALS: Unremarkable. No mass. KIDNEYS AND URETERS: The kidneys enhance symmetrically. Again seen are bilateral perinephric stranding. Again seen is partially exophytic cystic lesion at the left kidney measures 4.3 x 4.6 centimeter. No evidence of hydronephrosis or hydroureter. VASCULATURE: Unremarkable. No aortic aneurysm. BOWEL: Again seen is 2nd portion duodenal diverticulum. The stomach is not distended therefore cannot be evaluated. Mild constipation is noted. No evidence of high-grade bowel obstruction. Few scattered colonic diverticulosis are seen. Redundant sigmoid colon extending to the right mid abdomen is again noted. APPENDIX: No evidence of appendicitis. PERITONEUM: Unremarkable. No free fluid. No free air. LYMPH NODES: Unremarkable. No enlarged lymph nodes. BLADDER: Unremarkable. REPRODUCTIVE: Unremarkable. BONES: No acute fracture. OTHER FINDINGS: None. IMPRESSION: No evidence of acute pathology in the abdomen and pelvis. No significant interval change in the right lower lung compared to the previous exam as described above.
[2017-05-01] MEDS ORDERED: Omega-3-Acid Ethyl Esters 1 GM Cap ONE (18:00)
--- NOTE | 2017-05-01 20:38 | CP.PCM.PN ---
<Jeramie Olivier - Last Filed: 05/01/17 20:28> Subjective - Date & Time of Evaluation Date of Evaluation: 05/01/17 Time of Evaluation: 08:00 - Subjective Subjective: PGY1 Medicine Note for Dr. Sandoval Patient seen and examined at bedside this morning. Patient states that feels a little bit better than he did yesterday but he states he is still feeling weak today. Patient is awake and alert but very lethargic. Patient states that he is still experiencing abdominal pain. He states he has not had a BM in 4 days, but this is normal for him. Patient states his breathing is slightly better today. He reports that the ct oxygen helps. Denies f/c, n/v, d/c, chest pain or palpitations. Objective - Vital Signs/Intake and Output Vital Signs (last 24 hours): Temp Pulse Resp BP Pulse Ox 97.8 F 82 18 119/76 100 05/01/17 16:39 05/01/17 16:39 05/01/17 16:39 05/01/17 16:39 05/01/17 15:15 Intake and Output: 05/01/17 05/02/17 18:59 06:59 Intake Total 325 Balance 325 - Medications Medications: Current Medications Aripiprazole (Abilify) 1 mg PO DAILY [facility] Last Admin: 05/01/17 11:23 Dose: Not Given Bisacodyl (Dulcolax) 5 mg PO HS [facility] Divalproex Sodium (Depakote Dr Tab) 125 mg PO TID [facility] Last Admin: 05/01/17 18:27 Dose: 125 mg Escitalopram Oxalate (Lexapro) 10 mg PO DAILY [facility] Last Admin: 05/01/17 10:23 Dose: Not Given Sodium Chloride (Sodium Chloride 0.9%) 1,000 mls @ 60 mls/hr IV .[id number] [facility] Last Admin: 05/01/17 11:28 Dose: 60 mls/hr Magnesium Hydroxide (Milk Of Magnesia) 30 ml PO HS PRN PRN Reason: Constipation Nicotine (Nicoderm Cq) 1 patch TD DAILY [facility] Last Admin: 05/01/17 10:30 Dose: 1 patch [id number] Ethyl Esters (Lovaza) 1,000 gm PO BID [facility] Last Admin: 05/01/17 18:27 Dose: 1,000 gm Pantoprazole Sodium (Protonix Ec Tab) 40 mg PO BID [facility] Last Admin: 05/01/17 18:28 Dose: 40 mg - Labs Labs: 05/01/17 06:45 05/01/17 06:45 PT 13.1 SECONDS (9.7-12.2) H 05/01/17 06:45 INR 1.2 05/01/17 06:45 APTT 26 SECONDS (21-34) 05/01/17 06:45 - Head Exam Head Exam: ATRAUMATIC, NORMAL INSPECTION - Eye Exam Eye Exam: EOMI, Normal appearance. absent: Scleral icterus Pupil Exam: PERRL - ENT Exam ENT Exam: Mucous Membranes Moist - Respiratory Exam Respiratory Exam: Decreased Breath Sounds, Rales (b/l bases), NORMAL BREATHING PATTERN. absent: Accessory Muscle Use, Wheezes, Respiratory Distress - Cardiovascular Exam Cardiovascular Exam: Irregular Rhythm (afib, rate of 80s on tele), +S1, +S2 - GI/Abdominal Exam GI & Abdominal Exam: Soft, Tenderness (diffuse). absent: Distended, Firm, Guarding, Rigid - Extremities Exam Extremities Exam: Pedal Edema (mild), Tenderness (b/l). absent: Normal Inspection (chronic skin color changes) - Neurological Exam Neurological Exam: Alert, Awake, Oriented x3 - Psychiatric Exam Psychiatric exam: Normal Affect, Normal Mood - Skin Skin Exam: Dry, Intact, Warm. absent: Normal Color Assessment and Plan - Assessment and Plan (Free Text) Plan: Anemia due to GI blood loss Likely secondary to GI bleed Hgb at admission 7.3 Stool Occult positive HOLD Eliquis Transfused 1 unit PRBC (04/30) Repeat CBC: still 7.3 on am labs -->transfuse one unit of pRBC (05/01) PT/PTT: 13.08/08 NPO Gave 1 dose of Protonix 80mg PO. Start Protonix 40mg PO BID tomorrow GI consulted- Dr. Lewis, help appreciated * CLD, NPO after midnight * EGD friday, 05/02, in AM * f/u further recs after EGD Abdominal pain Patient c/o midline suprapubic/abdominal pain, described as sharp with palpation and worsens with constipation. Abdomen/Pelvis CT with PO/IV contrast:No evidence of acute pathology in the abdomen and pelvis. No significant interval change in the right lower lung compared to the previous exam as described above Stool occult positive Atrial fibrillation Home medication: Eliquis 5mg PO BID HOLD Eliquis due to anemia, hbg 7.3, GI bleed. Monitor on telemetry. Cardiology consulted- Dr. Espinal, help appreciated EKG: Atrial fibrillation @90bpm Echo: f/u results - awaiting official report Shortness of breath Patient uses 2 pillows and elevates the back of bed at home to decrease symptoms of SOB. CXR: f/u results O2 2L via nasal cannula prn Constipation Continue home medications PRN: * Milk of Magnesia 30mg PO HS PRN * Miralax 17gm PO HS * Lactulose 10gm PO daily * Dulcolax 5mg PO HS Elevated alanine aminotransferase (ALT) level ALT 69 AST 36 Hepatitis panel: negative Continue to monitor History of tobacco abuse Continue home medication: Nicoderm patch Hyperlipidemia Continue home medication: Fish oil 1 capsule PO BID History of bipolar disorder Continue home medications for bipolar disorder & depression * Abilify 2mg daily * Depakote 125mg PO TID * Lexapro 10mg PO daily Prophylactic measure SCDs Protonix 40mg PO BID HOLD Eliquis due to GI bleed, hgb 7.3 Keep NPO Fall precaution PT/OT <Linus Sandoval H - Last Filed: 05/02/17 09:03> Objective - Vital Signs/Intake and Output Vital Signs (last 24 hours): Temp Pulse Resp BP Pulse Ox 97.3 F L 85 18 134/79 99 05/02/17 07:45 05/02/17 07:45 05/02/17 07:45 05/02/17 07:45 05/02/17 07:45 Intake and Output: 05/02/17 05/02/17 06:59 18:59 Output Total 150 Balance -150 - Medications Medications: Current Medications Aripiprazole (Abilify) 1 mg PO DAILY [facility] Last Admin: 05/01/17 11:23 Dose: Not Given Bisacodyl (Dulcolax) 5 mg PO HS [facility] Last Admin: 05/01/17 22:23 Dose: Not Given Divalproex Sodium (Depakote Dr Tab) 125 mg PO TID [facility] Last Admin: 05/01/17 18:27 Dose: 125 mg Escitalopram Oxalate (Lexapro) 10 mg PO DAILY [facility] Last Admin: 05/01/17 10:23 Dose: Not Given Sodium Chloride (Sodium Chloride 0.9%) 1,000 mls @ 60 mls/hr IV .[id number] [facility] Last Admin: 05/01/17 11:28 Dose: 60 mls/hr Magnesium Hydroxide (Milk Of Magnesia) 30 ml PO HS PRN PRN Reason: Constipation Nicotine (Nicoderm Cq) 1 patch TD DAILY [facility] Last Admin: 05/01/17 10:30 Dose: 1 patch [id number] Ethyl Esters (Lovaza) 1,000 gm PO BID [facility] Last Admin: 05/01/17 18:27 Dose: 1,000 gm Pantoprazole Sodium (Protonix Ec Tab) 40 mg PO BID [facility] Last Admin: 05/01/17 18:28 Dose: 40 mg - Labs Labs: 05/02/17 08:05 05/02/17 08:05 PT 13.1 SECONDS (9.7-12.2) H 05/01/17 06:45 INR 1.2 05/01/17 06:45 APTT 26 SECONDS (21-34) 05/01/17 06:45 Attending/Attestation - Attestation I have personally seen and examined this patient.: Yes I have fully participated in the care of the patient.: Yes I have reviewed all pertinent clinical information, including history, physical exam and plan: Yes Notes (Text): Medical attending: Patient was seen and examined by me, agrees the above note by medical radiation dosimetrist. Overnight the patient received 1 unit of PRBCs, and we gave instructions to give an additional unit of PRBCs as well. The patient was taking Eliquis for a history of atrial fibrillation. Currently that is on hold at this time due to concerns of GI bleeding. And is currently pending a GI evaluation The patient does have extensive cardiac history besides atrial fibrillation. We' re going to give the patient as mentioned above additional PRBCs as well as intravenous fluids and to start a second peripheral access IV. Because of the extensive cardiac history will also have to monitor the patient for any fluid overload. Also have a repeat chest x-ray done as well. Thank you very much, Linus Sandoval
[2017-05-01] MEDS: Bisacodyl 5mg EC Tab PO SCH (22:23)
--- NOTE | 2017-05-02 07:20 | RAD ---
HISTORY: assess for fluid overload, CHF COMPARISON: Portable chest 04/30/2017. FINDINGS: LUNGS: Limited airspace disease increased at the right base and stable at the medial left base. PLEURA: A small right pleural effusion is increased. None is identified in the left. No pneumothorax bilaterally. CARDIOVASCULAR: Cardiomediastinal silhouette appears stable although overall inspiratory volume appears diminished in the interval. No pulmonary vascular derangement identified. OSSEOUS STRUCTURES: No significant abnormalities. VISUALIZED UPPER ABDOMEN: Normal. OTHER FINDINGS: None. IMPRESSION: Increased right basilar airspace disease with minimal left airspace disease unchanged at the medial base. Small right pleural effusion identified increase.
[2017-05-02 08:17] LABS: BASO % 0.6 % (0.0-2.0); EOS # 0.1 K/uL (0.0-0.7); EOS % 2.7 % (0.0-4.0); HEMATOCRIT 27.6 % (35.0-51.0); LYMPH # 0.9 K/uL (1.0-4.3); LYMPH % 16.9 % (20.0-40.0); MEAN CELL VOLUME 92.5 fL (80.0-94.0); MEAN CORPUSCULAR HEMOGLOBIN 31.1 pg (27.0-31.0); MEAN CORPUSCULAR HGB CONC 33.6 g/dL (33.0-37.0); MEAN PLATELET VOLUME 12.8 fL (7.2-11.7); MONO # 0.5 K/uL (0.0-0.8); MONO % 9.7 % (0.0-10.0); NRBC % 0.2 % (0.0-2.0); RED CELL DISTRIBUTION WIDTH 17.1 % (11.5-14.5); WHITE BLOOD COUNT 5.5 K/uL (4.8-10.8)
[2017-05-02 08:35] LABS: CHLORIDE 106 mmol/L (98-107); SODIUM 136 mmol/L (132-148)
[2017-05-02 08:36] LABS: POTASSIUM 4.1 mmol/L (3.6-5.2)
[2017-05-02 08:38] LABS: ALKALINE PHOSPHATASE 51 U/L (38-126); ALT/SGPT 72 U/L (21-72); AST/SGOT 36 U/L (17-59); BILIRUBIN,TOTAL 1.2 mg/dL (0.2-1.3); BLOOD UREA NITROGEN 21 mg/dL (9-20); CALCIUM 7.7 mg/dl (8.6-10.4); CARBON DIOXIDE 25 mmol/L (22-30); GFR AFRICAN-AMERICAN > 60; GLUCOSE,RANDOM 60 mg/dL (75-110); TOTAL PROTEIN 5.6 g/dL (6.3-8.3)
--- NOTE | 2017-05-02 09:26 | CP.PCM.PN ---
<Jeramie Olivier - Last Filed: 05/02/17 12:27> Subjective - Date & Time of Evaluation Date of Evaluation: 05/02/17 Time of Evaluation: 09:23 - Subjective Subjective: PGY1 Medicine Note for Dr. Sandoval Patient was seen and examined at bedside this morning. Patient appears very lethargic and does not want to speak much. He states he feels very weak and tired. He is still NPO this morning for an EGD scheduled for later this morning. Patient denies any f/c, n/v, difficulty breathing, chest pain, abdominal pain or headaches. Objective - Vital Signs/Intake and Output Vital Signs (last 24 hours): Temp Pulse Resp BP Pulse Ox 97.3 F L 85 18 134/79 99 05/02/17 07:45 05/02/17 07:45 05/02/17 07:45 05/02/17 07:45 05/02/17 07:45 Intake and Output: 05/02/17 05/02/17 06:59 18:59 Output Total 150 Balance -150 - Medications Medications: Current Medications Aripiprazole (Abilify) 1 mg PO DAILY [facility] Last Admin: 05/01/17 11:23 Dose: Not Given Bisacodyl (Dulcolax) 5 mg PO HS [facility] Last Admin: 05/01/17 22:23 Dose: Not Given Divalproex Sodium (Depakote Dr Tab) 125 mg PO TID [facility] Last Admin: 05/01/17 18:27 Dose: 125 mg Escitalopram Oxalate (Lexapro) 10 mg PO DAILY [facility] Last Admin: 05/01/17 10:23 Dose: Not Given Sodium Chloride (Sodium Chloride 0.9%) 1,000 mls @ 60 mls/hr IV .[id number] [facility] Last Admin: 05/01/17 11:28 Dose: 60 mls/hr Magnesium Hydroxide (Milk Of Magnesia) 30 ml PO HS PRN PRN Reason: Constipation Nicotine (Nicoderm Cq) 1 patch TD DAILY [facility] Last Admin: 05/01/17 10:30 Dose: 1 patch [id number]-[id number] Ethyl Esters (Lovaza) 1,000 gm PO BID [facility] Last Admin: 05/01/17 18:27 Dose: 1,000 gm Pantoprazole Sodium (Protonix Ec Tab) 40 mg PO BID [facility] Last Admin: 05/01/17 18:28 Dose: 40 mg - Labs Labs: 05/02/17 08:05 05/02/17 08:05 PT 13.1 SECONDS (9.7-12.2) H 05/01/17 06:45 INR 1.2 05/01/17 06:45 APTT 26 SECONDS (21-34) 05/01/17 06:45 - Constitutional Appears: No Acute Distress, Chronically Ill - Head Exam Head Exam: ATRAUMATIC, NORMOCEPHALIC - Eye Exam Eye Exam: EOMI, Normal appearance - ENT Exam ENT Exam: Mucous Membranes Dry - Respiratory Exam Respiratory Exam: Decreased Breath Sounds, Rales (b/l), NORMAL BREATHING PATTERN. absent: Accessory Muscle Use, Wheezes, Respiratory Distress - Cardiovascular Exam Cardiovascular Exam: Irregular Rhythm, +S1, +S2 - GI/Abdominal Exam GI & Abdominal Exam: Soft, Normal Bowel Sounds. absent: Distended, Firm, Guarding, Rigid, Tenderness - Extremities Exam Extremities Exam: Pedal Edema (mild). absent: Calf Tenderness, Tenderness - Neurological Exam Neurological Exam: Alert, Awake, Oriented x3 - Psychiatric Exam Psychiatric exam: Depressed Additional comments: very lethargic - Skin Skin Exam: Dry, Warm Assessment and Plan - Assessment and Plan (Free Text) Plan: Anemia due to GI blood loss Likely secondary to GI bleed Hgb at admission 7.3 Stool Occult positive HOLD Eliquis Transfused 1 unit PRBC (04/30) Transfused 1 unit of pRBC (05/01) Hgb: Increased to 9.3 on 05/02 from 7.3 on 05/01 PT/PTT: 13.1/26 Protonix 40mg PO daily GI consulted- Dr. Lewis, help appreciated * CLD * EGD 05/02/17 - Erosive gastritis and duodenitis. No active bleeding. No ulcers. PPI daily. Colonoscopy on Friday. Abdominal pain Patient c/o midline suprapubic/abdominal pain, described as sharp with palpation and worsens with constipation. Abdomen/Pelvis CT with PO/IV contrast:No evidence of acute pathology in the abdomen and pelvis. No significant interval change in the right lower lung compared to the previous exam as described above Stool occult positive Atrial fibrillation Home medication: Eliquis 5mg PO BID HOLD Eliquis due to anemia Monitor on telemetry. Cardiology consulted- Dr. Espinal, help appreciated EKG: Atrial fibrillation @90bpm Echo: LVEF 69.3%, awaiting official report Shortness of breath Patient uses 2 pillows and elevates the back of bed at home to decrease symptoms of SOB. CXR: Increased right basilar airspace disease with minimal left airspace disease unchanged at the medial base. Small right pleural effusion identified increase. O2 2L via nasal cannula prn Constipation Continue home medications PRN: * Milk of Magnesia 30mg PO HS PRN * Miralax 17gm PO HS * Lactulose 10gm PO daily * Dulcolax 5mg PO HS Elevated alanine aminotransferase (ALT) level ALT 69 AST 36 Hepatitis panel: negative Continue to monitor History of tobacco abuse Continue home medication: Nicoderm patch Hyperlipidemia Continue home medication: Fish oil 1 capsule PO BID History of bipolar disorder Continue home medications for bipolar disorder & depression * Abilify 2mg daily * Depakote 125mg PO TID * Lexapro 10mg PO daily Prophylactic measure SCDs Protonix 40mg PO BID HOLD Eliquis due to GI bleed Keep NPO Fall precaution PT/OT Case discussed with Dr. Lori Bobo Soy PGY1 <Linus Sandoval H - Last Filed: 05/02/17 13:20> Objective - Vital Signs/Intake and Output Vital Signs (last 24 hours): Temp Pulse Resp BP Pulse Ox 96 F L 100 H 32 H 118/60 100 05/02/17 10:30 05/02/17 11:00 05/02/17 11:00 05/02/17 11:00 05/02/17 11:00 Intake and Output: 05/02/17 05/02/17 06:59 18:59 Intake Total 50 Output Total 150 Balance -150 50 - Medications Medications: Current Medications Aripiprazole (Abilify) 1 mg PO DAILY [facility] Last Admin: 05/01/17 11:23 Dose: Not Given Bisacodyl (Dulcolax) 5 mg PO HS [facility] Last Admin: 05/01/17 22:23 Dose: Not Given Divalproex Sodium (Depakote Dr Tab) 125 mg PO TID [facility] Last Admin: 05/01/17 18:27 Dose: 125 mg Escitalopram Oxalate (Lexapro) 10 mg PO DAILY [facility] Last Admin: 05/01/17 10:23 Dose: Not Given Furosemide (Lasix) 40 mg IVP BID [facility] Sodium Chloride (Sodium Chloride 0.9%) 1,000 mls @ 60 mls/hr IV .[id number] [facility] Last Admin: 05/01/17 11:28 Dose: 60 mls/hr Magnesium Hydroxide (Milk Of Magnesia) 30 ml PO HS PRN PRN Reason: Constipation Nicotine (Nicoderm Cq) 1 patch TD DAILY [facility] Last Admin: 05/01/17 10:30 Dose: 1 patch Ejwgj-[id number] Ethyl Esters (Lovaza) 1 gm PO BID [facility] Pantoprazole Sodium (Protonix Ec Tab) 40 mg PO DAILY [facility] - Labs Labs: 05/02/17 08:05 05/02/17 08:05 PT 13.1 SECONDS (9.7-12.2) H 05/01/17 06:45 INR 1.2 05/01/17 06:45 APTT 26 SECONDS (21-34) 05/01/17 06:45 Attending/Attestation - Attestation I have personally seen and examined this patient.: Yes I have fully participated in the care of the patient.: Yes I have reviewed all pertinent clinical information, including history, physical exam and plan: Yes Notes (Text): 05/02/17 13:20 Medical attending: Patient was seen and examined by me, agrees the above note by medical management specialist. The patient has received a second unit of PRBCs. The hemoglobin did increase to 9.3. The patient is also on intravenous fluids as well. A repeat chest x-ray shows that probably there is some additional congestion on the chest x-rays now. This is probably likely from the fluids as well as the PRBCs that we are giving the patient. Regular give the patient IV Lasix at this time. As mentioned previously the patient has a history of CHF, atrial fibrillation, as well as CAD. He is currently here with anemia, as well as fecal occult positive stools. Earlier in the day had EGD done the results of which are not yet available Thank you very much Linus Sandoval
[2017-05-02] MEDS ORDERED: Propofol 10 mg/ml Inj (20 ML) ONE (10:12)
[2017-05-02] MEDS ORDERED: Etomidate 20 mg/10ml Inj IV ONE (10:12)
[2017-05-02] MEDS: Divalproex 125 mg DR Tab PO SCH ×3 (10:19→21:02)
--- NOTE | 2017-05-02 12:05 | CARD ---
APPROVED REPORT EXAM: Two-dimensional and M-mode echocardiogram with Doppler and color Doppler. 2D DIMENSIONS IVSd1.1 (0.7-1.1cm)LVDd4.7 (3.9-5.9cm) PWd1.0 (0.7-1.1cm)LVDs2.9 (2.5-4.0cm) FS (%) 38.9 %LVEF (%)69.3 (>50%) M-Mode DIMENSIONS Left Atrium (MM)3.91 (2.5-4.0cm)Aortic Root4.19 (2.2-3.7cm) Aortic Cusp Exc.2.28 (1.5-2.0cm) Mitral Valve E/A ratio0.0 TDI E/Lateral E'0.0E/Medial E'0.0 Tricuspid Valve TR Peak [id number]/sTR Peak [id number] LEFT VENTRICLE The left ventricle is normal size. There is normal left ventricular wall thickness. The left ventricular function is normal. The left ventricular ejection fraction is within the normal range. There is normal LV segmental wall motion. No left ventricle thrombus noted on this study. There is no ventricular septal defect visualized. There is no left ventricular aneurysm. There is no mass noted in the left ventricle. RIGHT VENTRICLE The right ventricle apex is not well visualized. The right ventricular systolic function is normal. ATRIA The left atrium size is normal. The right atrium size is normal. AORTIC VALVE The aortic valve is normal in structure. There is trace to mild aortic regurgitation. There is no aortic valvular stenosis. There is no aortic valvular vegetation. MITRAL VALVE The mitral valve is normal in structure. There is no mitral valve stenosis. Mitral regurgitation is trace to mild. TRICUSPID VALVE The tricuspid valve is normal in structure. There is no tricuspid valve regurgitation noted. PULMONIC VALVE The pulmonary valve is normal in structure. <Conclusion> There is trace to mild aortic regurgitation. Mitral regurgitation is trace to mild. suboptimal study.
--- NOTE | 2017-05-02 12:17 | CARD ---
APPROVED REPORT EKG Measurement Heart [id number] <Conclusion> Atrial fibrillation Abnormal ECG
[2017-05-02] MEDS: Omega-3-Acid Ethyl Esters 1 GM Cap PO SCH ×3 (13:14→21:03)
[2017-05-02] MEDS: Pantoprazole 40 mg EC Tab PO SCH (14:57)
--- NOTE | 2017-05-02 16:03 | RAD ---
HISTORY: Verify PICC line. COMPARISON: Correlation made with chest radiograph 05/01/[address] scan abdomen pelvis which image both lung bases. . Comparison also made with prior CT scan abdomen pelvis 08/30/2016. FINDINGS: Interval placement left-sided PICC line, the tip of which appears to be located at the brachiocephalic SVC junction (perpendicular to the long axis of the SVC. This should be revised so that tip and long axis of the distal line is within and parallel to the SVC. LUNGS: Re- demonstrated is a elliptical shaped masslike density in the right posterior sulcus which may represent chronic rounded atelectasis and was present on prior CT scan abdomen pelvis dated 08/30/2016 and appears unchanged. Additionally, there are linear and wedge-shaped areas of atelectasis/scarring both lung bases. . Small right-sided effusion and trace left-sided effusion poorly seen compared to high-resolution CT scan. PLEURA: No significant pleural effusion identified, no pneumothorax apparent. CARDIOVASCULAR: Heart appears enlarged. OSSEOUS STRUCTURES: Multilevel degenerative spondylosis of the thoracic spine VISUALIZED UPPER ABDOMEN: Normal. OTHER FINDINGS: None. IMPRESSION: Interval placement left-sided PICC line, the tip of which appears to be located at the brachiocephalic SVC junction (perpendicular to the long axis of the SVC. This should be revised so that tip and long axis of the distal line is within and parallel to the SVC. Stable appearing elliptical shaped masslike density right posterior sulcus that may represent chronic rounded atelectasis. A additionally, linear/ wedge-shaped areas of atelectasis/ scarring both lung bases also again seen. Small right-sided effusion and trace left-sided effusion poorly seen compared to high-resolution CT scan. Cardiomegaly.
[2017-05-02] MEDS: Sodium Chloride 0.9% 1,000 ML IV SCH (18:00)
--- NOTE | 2017-05-02 18:25 | RAD ---
HISTORY: Power flushed for repositioning . Technique: Single view portable semi erect @ 16:11. COMPARISON: May 02, 2017. Time of the most recent examination: 15:15. FINDINGS: LUNGS: Stable consolidative changes right lower lobe. PLEURA: Stable right pleural effusion. CARDIOVASCULAR: No radiographic findings to suggest acute or significant cardiovascular disease. Stable position of PICC line OSSEOUS STRUCTURES: No significant abnormalities. Sclerotic changes in the scapula on the left again identified. VISUALIZED UPPER ABDOMEN: Normal. OTHER FINDINGS: None. IMPRESSION: No significant interval change compared to the prior examination(s). This includes right lower lobe infiltrate, right pleural effusion and the suboptimal position of PICC line.
[2017-05-02] MEDS: Bisacodyl 5mg EC Tab PO SCH (21:02)
[2017-05-03 06:20] LABS: BASO % 0.5 % (0.0-2.0); EOS # 0.1 K/uL (0.0-0.7); EOS % 2.7 % (0.0-4.0); HEMATOCRIT 29.2 % (35.0-51.0); LYMPH # 0.7 K/uL (1.0-4.3); LYMPH % 13.5 % (20.0-40.0); MEAN CELL VOLUME 91.4 fL (80.0-94.0); MEAN CORPUSCULAR HGB CONC 33.9 g/dL (33.0-37.0); MEAN PLATELET VOLUME 13.1 fL (7.2-11.7); MONO # 0.5 K/uL (0.0-0.8); MONO % 9.2 % (0.0-10.0); NRBC % 0.2 % (0.0-2.0); RED CELL DISTRIBUTION WIDTH 17.2 % (11.5-14.5); WHITE BLOOD COUNT 5.5 K/uL (4.8-10.8)
--- NOTE | 2017-05-03 07:03 | CON ---
DATE: CARDIOLOGY CONSULTATION HISTORY OF PRESENT ILLNESS: A 76-year-old gentleman was brought in with hemoglobin of 7.3. He was found to be in atrial fibrillation. Cardiac evaluation is requested. History is obtained from the patient and review of the chart. He has a longstanding history of CAD, hypertension and possibly heart failure as per chart review. His hemoglobin was 9.2 at [facility], which he has been there for many years and in two weeks it had dropped to 7.3. The patient was given Lasix about 2 weeks ago because of shortness of breath and edema and he lost 40 pounds as per chart review. Last 2 to 3 weeks, he has been essentially bed confined. PERSONAL HISTORY: One pack per day smoker until one month ago. No EtOH abuse. ALLERGIES: DENIED. FAMILY HISTORY: Negative for premature coronary artery disease. REVIEW OF SYSTEMS: Denies weakness. He has noted no fever, no chills. Shortness of breath on minimal exertion, although he does not walk around much. No abdominal pain. No hematemesis. No melena. No urinary complaints. No hematuria. No history of TIAs or CVAs. No history of depression. No visual disturbances. Hearing is somewhat impaired. No hemoptysis. Multiple joint pains and arthritis. CURRENT MEDICATIONS: Include Abilify, Depakote, Lasix, Lexapro, Lovaza, Nicoderm patch and Protonix. The patient had EEG done and he is scheduled for endoscopy and colonoscopy next week. PHYSICAL EXAMINATION: GENERAL: Shows an elderly gentleman in no acute distress. VITAL SIGNS: He is 5 feet 8 inches, weight is 207 pounds, blood pressure is 110/70, heart rate of 78, irregular, respiratory rate of 20, afebrile. HEENT: No neck vein distention. are multiple. NECK: Supple. LUNGS: Shows scattered rhonchi. HEART: Sounds are distant and irregular. No definite gallops or murmurs. ABDOMEN: Soft. EXTREMITIES: No edema. Distal pulses are 1+. LABORATORY DATA: EKG, atrial fibrillation. Echocardiogram report is showing normal LV systolic function. No significant valvular disease. ASSESSMENT: This is a 76-year-old gentleman with atrial fibrillation. RECOMMENDATION: Given significant anemia and bedridden status at this point, would not recommend any anticoagulation. GI workup. The patient's heart rate seems to be controlled without any beta blockers or digoxin. Heart rate varies from 70 to 80s and 90s. We will continue with current medication. May add beta smita and a small dose of diuretics as necessary. I thank you kindly and we will follow only as needed. Keny Espinal MD
[2017-05-03 07:44] LABS: CHLORIDE 99 mmol/L (98-107); POTASSIUM 3.5 mmol/L (3.6-5.2); SODIUM 137 mmol/L (132-148)
[2017-05-03] MEDS ORDERED: Moxifloxacin IV 400mg/250ml NS 400 MG/250 ML BAG IVPB SCH (07:45)
[2017-05-03 07:46] LABS: GFR AFRICAN-AMERICAN > 60
[2017-05-03 07:47] LABS: ALB/GLOB RATIO 0.9 (1.0-2.1); ALKALINE PHOSPHATASE 58 U/L (38-126); ALT/SGPT 78 U/L (21-72); AST/SGOT 42 U/L (17-59); BILIRUBIN,TOTAL 1.2 mg/dL (0.2-1.3); BLOOD UREA NITROGEN 17 mg/dL (9-20); CARBON DIOXIDE 29 mmol/L (22-30); GLUCOSE,RANDOM 61 mg/dL (75-110); TOTAL PROTEIN 6.4 g/dL (6.3-8.3)
[2017-05-03 07:48] LABS: CALCIUM 7.9 mg/dl (8.6-10.4)
--- NOTE | 2017-05-03 08:20 | CP.PCM.PN ---
Subjective - Date & Time of Evaluation Date of Evaluation: 05/03/17 Time of Evaluation: 08:00 - Subjective Subjective: Patient was seen and examined by me. As mentioned previously he has had anemia and brought in to hospital from [facility]. There is a history of atrial fibrillation and he was on Eliquis which is currently on hold. He is S/P EGD, probably colonscopy this coming Friday. He had two units of PRBCs and Hgb is up 9.3 today. The patient reported that he has be urinating a lot as he is on lasix and ran out of urinals last night and because of this he was chronically wetting his bed and he was upset with this. I reviewed his CXRAY and the plerural effusions are small so will stop lasix. The recorded sugars are low, appetite has been poor. Objective - Vital Signs/Intake and Output Vital Signs (last 24 hours): Temp Pulse Resp BP Pulse Ox 97.6 F 82 20 110/80 99 05/02/17 23:50 05/02/17 23:50 05/02/17 23:50 05/03/17 01:14 05/02/17 23:50 Intake and Output: 05/03/17 05/03/17 06:59 18:59 Intake Total 500 Output Total 1100 Balance -600 - Medications Medications: Current Medications Aripiprazole (Abilify) 1 mg PO DAILY [facility] Last Admin: 05/02/17 10:18 Dose: Not Given Bisacodyl (Dulcolax) 5 mg PO HS [facility] Last Admin: 05/02/17 21:02 Dose: 5 mg Divalproex Sodium (Depakote Dr Tab) 125 mg PO TID [facility] Last Admin: 05/02/17 21:02 Dose: 125 mg Escitalopram Oxalate (Lexapro) 10 mg PO DAILY [facility] Last Admin: 05/02/17 10:19 Dose: Not Given Furosemide (Lasix) 40 mg IVP Q12H [facility] Last Admin: 05/03/17 01:14 Dose: 40 mg Sodium Chloride (Sodium Chloride 0.9%) 1,000 mls @ 60 mls/hr IV .[id number] [facility] Last Admin: 05/02/17 18:00 Dose: 60 mls/hr Ceftriaxone Sodium (Rocephin Iv 1 Gm Duplex) 50 mls @ 100 mls/hr IVPB Q12H [facility] Azithromycin 500 mg/ Sodium (Chloride) 250 mls @ 250 mls/hr IVPB DAILY [facility] Magnesium Hydroxide (Milk Of Magnesia) 30 ml PO HS PRN PRN Reason: Constipation Nicotine (Nicoderm Cq) 1 patch TD DAILY [facility] Last Admin: 05/02/17 14:13 Dose: 1 patch [id number]-[id number] Ethyl Esters (Lovaza) 1 gm PO BID [facility] Last Admin: 05/02/17 21:03 Dose: 1 gm Pantoprazole Sodium (Protonix Ec Tab) 40 mg PO DAILY [facility] - Labs Labs: 05/03/17 06:07 05/03/17 06:07 PT 13.1 SECONDS (9.7-12.2) H 05/01/17 06:45 INR 1.2 05/01/17 06:45 APTT 26 SECONDS (21-34) 05/01/17 06:45 - Constitutional Appears: Well, No Acute Distress, Older Than Stated Age - Head Exam Head Exam: NORMAL INSPECTION, NORMOCEPHALIC - Eye Exam Eye Exam: EOMI - ENT Exam ENT Exam: Mucous Membranes Moist - Respiratory Exam Respiratory Exam: Rales, Rhonchi - Cardiovascular Exam Cardiovascular Exam: Irregular Rhythm - GI/Abdominal Exam GI & Abdominal Exam: Distended, Soft, Normal Bowel Sounds. absent: Firm, Guarding, Rigid, Tenderness - Neurological Exam Neurological Exam: Alert, Awake, Oriented x3 Neuro motor strength exam: Left Upper Extremity: 5, Right Upper Extremity: 5 - Psychiatric Exam Psychiatric exam: Normal Affect, Normal Mood - Skin Skin Exam: Pallor, Pallor, Warm Assessment and Plan - Assessment and Plan (Free Text) Assessment: Anemia due to GI blood loss 05/03: Hgb now 9.9, he has had two units of PRBCs. S/P EGD yesterday showing only erosive gastritis and duodentitis without acute bleeding or areas of recent bleeding. Patient's anticoagulation on hold. Maybe colonoscopy this Friday. Likely secondary to GI bleed Hgb at admission 7.3 Stool Occult positive HOLD Eliquis Transfused 1 unit PRBC (04/30) Transfused 1 unit of pRBC (05/01) Hgb: Increased to 9.3 on 05/02 from 7.3 on 05/01 PT/PTT: 13.08/08 Protonix 40mg PO daily GI consulted- Dr. Lewis, help appreciated * [facility] * EGD 05/02/17 - Erosive gastritis and duodenitis. No active bleeding. No ulcers. PPI daily. Colonoscopy on Friday. Abdominal pain Patient c/o midline suprapubic/abdominal pain, described as sharp with palpation and worsens with constipation. Abdomen/Pelvis CT with PO/IV contrast:No evidence of acute pathology in the abdomen and pelvis. No significant interval change in the right lower lung compared to the previous exam as described above Stool occult positive Atrial fibrillation 05/03: Review of telemetry overnight shows HR in the 90s, irregular irregular. Eliquis is on hold. He has a pretty high HAS-BLED score. Home medication: Eliquis 5mg PO BID HOLD Eliquis due to anemia Monitor on telemetry. Cardiology consulted- Dr. Espinal, help appreciated EKG: Atrial fibrillation @90bpm Echo: LVEF 69.3%, awaiting official report Shortness of breath 05/03: Will hold the lasix today. CXRAYs showing minimal pleural effusions, he is also upset about constant urination. Will monitor. The CXRAY suggestive of infiltrates on report. Will add rocephin and azithromycin for the time being, contnue to monitor. Patient uses 2 pillows and elevates the back of bed at home to decrease symptoms of SOB. CXR: Increased right basilar airspace disease with minimal left airspace disease unchanged at the medial base. Small right pleural effusion identified increase. O2 2L via nasal cannula prn Constipation Continue home medications PRN: * Milk of Magnesia 30mg PO HS PRN * Miralax 17gm PO HS * Lactulose 10gm PO daily * Dulcolax 5mg PO HS Elevated alanine aminotransferase (ALT) level ALT 69 AST 36 Hepatitis panel: negative Continue to monitor History of tobacco abuse Continue home medication: Nicoderm patch Hyperlipidemia Continue home medication: Fish oil 1 capsule PO BID History of bipolar disorder Continue home medications for bipolar disorder & depression * Abilify 2mg daily * Depakote 125mg PO TID * Lexapro 10mg PO daily Prophylactic measure SCDs Protonix 40mg PO BID HOLD Eliquis due to GI bleed Keep NPO Fall precaution PT/OT
[2017-05-03] MEDS: cefTRIAXone IV 1 gm in Dextros 50 ML IVPB SCH ×3 (09:18→23:23)
[2017-05-03] MEDS: Azithromycin 500 MG in Sodium Chloride 0.9% 250 ML IVPB SCH ×2 (09:19→10:28)
[2017-05-03] MEDS: Dextrose 5%/0.9% NS 1,000 ML IV SCH ×2 (09:21→22:48)
--- NOTE | 2017-05-03 09:27 | CP.PCM.PN ---
<Diane Quintana - Last Filed: 05/03/17 09:35> Subjective - Date & Time of Evaluation Date of Evaluation: 05/03/17 Time of Evaluation: 08:40 - Subjective Subjective: GI Fellow PGY4 Progress Note Pt seen and evaluated at bedside, pt denies bleeding and none reported by nursing over night. Pt does report some mild periumbilical abdominal pain. Pt reports that he is urinating alot and wetting the bed, pt is on IV lasixs. ROS: A 12pt ROS was obtained and was negative except as above. Objective - Vital Signs/Intake and Output Vital Signs (last 24 hours): Temp Pulse Resp BP Pulse Ox 97.7 F 99 H 20 126/76 97 05/03/17 07:00 05/03/17 07:00 05/03/17 07:00 05/03/17 07:00 05/03/17 07:00 Intake and Output: 05/03/17 05/03/17 06:59 18:59 Intake Total 500 Output Total 1100 Balance -600 - Medications Medications: Current Medications Aripiprazole (Abilify) 1 mg PO DAILY [facility] Last Admin: 05/02/17 10:18 Dose: Not Given Bisacodyl (Dulcolax) 5 mg PO HS [facility] Last Admin: 05/02/17 21:02 Dose: 5 mg Divalproex Sodium (Depakote Dr Tab) 125 mg PO TID [facility] Last Admin: 05/02/17 21:02 Dose: 125 mg Escitalopram Oxalate (Lexapro) 10 mg PO DAILY [facility] Last Admin: 05/02/17 10:19 Dose: Not Given Furosemide (Lasix) 40 mg IVP Q12H [facility] Last Admin: 05/03/17 01:14 Dose: 40 mg Ceftriaxone Sodium (Rocephin Iv 1 Gm Duplex) 50 mls @ 100 mls/hr IVPB Q12H [facility] Last Admin: 05/03/17 09:18 Dose: 100 mls/hr Azithromycin 500 mg/ Sodium (Chloride) 250 mls @ 250 mls/hr IVPB DAILY [facility] Last Admin: 05/03/17 09:19 Dose: 250 mls/hr Dextrose/Sodium Chloride (Dextrose 5%/0.9% Ns 1000 Ml) 1,000 mls @ 70 mls/hr IV .[id number] [facility] Last Admin: 05/03/17 09:21 Dose: 70 mls/hr Magnesium Hydroxide (Milk Of Magnesia) 30 ml PO HS PRN PRN Reason: Constipation Nicotine (Nicoderm Cq) 1 patch TD DAILY [facility] Last Admin: 05/02/17 14:13 Dose: 1 patch [id number]-3-[id number] Ethyl Esters (Lovaza) 1 gm PO BID [facility] Last Admin: 05/02/17 21:03 Dose: 1 gm Pantoprazole Sodium (Protonix Ec Tab) 40 mg PO DAILY [facility] - Labs Labs: 05/03/17 06:07 05/03/17 06:07 PT 13.1 SECONDS (9.7-12.2) H 05/01/17 06:45 INR 1.2 05/01/17 06:45 APTT 26 SECONDS (21-34) 05/01/17 06:45 - Constitutional Appears: No Acute Distress, Chronically Ill - Head Exam Head Exam: ATRAUMATIC, NORMAL INSPECTION, NORMOCEPHALIC - Eye Exam Eye Exam: EOMI, Normal appearance, PERRL Pupil Exam: PERRL - ENT Exam ENT Exam: Mucous Membranes Moist, Normal Exam - Neck Exam Neck Exam: Full ROM, Normal Inspection - Respiratory Exam Respiratory Exam: Decreased Breath Sounds, NORMAL BREATHING PATTERN - Cardiovascular Exam Cardiovascular Exam: Irregular Rhythm, +S1 - GI/Abdominal Exam GI & Abdominal Exam: Soft, Tenderness, Normal Bowel Sounds. absent: Distended, Guarding, Organomegaly - Rectal Exam Rectal Exam: Deferred - Extremities Exam Extremities Exam: Pedal Edema - Neurological Exam Neurological Exam: Alert, Awake, Oriented x3 - Psychiatric Exam Psychiatric exam: Normal Affect, Normal Mood - Skin Skin Exam: Dry, Intact, Normal Color, Warm Assessment and Plan - Assessment and Plan (Free Text) Assessment: This is a 76 year old male with history of Atrial fibrillation on Eliquis, Hypertension, Hyperlipidemia, CAD, Diabetes, Depression, Bipolar disorder, osteoporosis, and constipation presenting from nursing facility due to black stools and anemia. 1. Melena 2. Anemia s/p 2U PRBCs 3. Afib on OAC Eliquis on hold since 04/28/17 4. Gastritis, Duodenitis Plan: -No further active GI bleed, no melena, Hgb stable after 2UPRBCs, hemodynamically stable -Continue to monitor H/H, goal Hgb>8 -s/p EGD with no source of active GI bleed, Gastritis, Duodenitis -Continue PPI 40mg po daily -Pt's OAC Eliquis is on hold since 04/28/17 -Continue clear liquid diet -Plan for colonoscopy on Friday, will start bowel prep tomorrow -Prior colonoscopy September 2016 showed poor prep and incomplete exam to sigmoid colon -Will Continue to follow pt closely <Scott Don - Last Filed: 05/03/17 11:31> Objective - Vital Signs/Intake and Output Vital Signs (last 24 hours): Temp Pulse Resp BP Pulse Ox 97.7 F 99 H 20 126/76 97 05/03/17 07:00 05/03/17 07:00 05/03/17 07:00 05/03/17 07:00 05/03/17 07:00 Intake and Output: 05/03/17 05/03/17 06:59 18:59 Intake Total 500 Output Total 1100 Balance -600 - Medications Medications: Current Medications Aripiprazole (Abilify) 1 mg PO DAILY [facility] Last Admin: 05/03/17 09:31 Dose: 1 mg Bisacodyl (Dulcolax) 5 mg PO HS [facility] Last Admin: 05/02/17 21:02 Dose: 5 mg Divalproex Sodium (Depakote Dr Tab) 125 mg PO TID [facility] Last Admin: 05/03/17 09:30 Dose: 125 mg Escitalopram Oxalate (Lexapro) 10 mg PO DAILY [facility] Last Admin: 05/03/17 09:30 Dose: 10 mg Furosemide (Lasix) 40 mg IVP Q12H [facility] Last Admin: 05/03/17 01:14 Dose: 40 mg Ceftriaxone Sodium (Rocephin Iv 1 Gm Duplex) 50 mls @ 100 mls/hr IVPB Q12H [facility] Last Admin: 05/03/17 10:27 Dose: 100 mls/hr Azithromycin 500 mg/ Sodium (Chloride) 250 mls @ 250 mls/hr IVPB DAILY [facility] Last Admin: 05/03/17 10:28 Dose: 250 mls/hr Dextrose/Sodium Chloride (Dextrose 5%/0.9% Ns 1000 Ml) 1,000 mls @ 70 mls/hr IV .[id number] [facility] Last Admin: 05/03/17 09:21 Dose: 70 mls/hr Magnesium Hydroxide (Milk Of Magnesia) 30 ml PO HS PRN PRN Reason: Constipation Nicotine (Nicoderm Cq) 1 patch TD DAILY [facility] Last Admin: 05/03/17 09:30 Dose: 1 patch [id number]-[id number] Ethyl Esters (Lovaza) 1 gm PO BID [facility] Last Admin: 05/03/17 09:30 Dose: 1 gm Pantoprazole Sodium (Protonix Ec Tab) 40 mg PO DAILY [facility] Last Admin: 05/03/17 09:29 Dose: 40 mg - Labs Labs: 05/03/17 06:07 05/03/17 06:07 PT 13.1 SECONDS (9.7-12.2) H 05/01/17 06:45 INR 1.2 05/01/17 06:45 APTT 26 SECONDS (21-34) 05/01/17 06:45 Attending/Attestation - Attestation I have personally seen and examined this patient.: Yes I have fully participated in the care of the patient.: Yes I have reviewed all pertinent clinical information, including history, physical exam and plan: Yes Notes (Text): 05/03/17 11:30 76 year old male with h/o Afib on Eliquis, HTN, HLD, DM, CAD admitted with anemia/melena. 1. Melena 2. Anemia 3. Erosive gastritis Plan: -no active bleeding at the moment -erosive gatritis and duodenitis noted -avoid nsaids -ppi daily -check h pylori stool ag -plan for colonoscopy friday -clear liquid diet in the meantime
[2017-05-03] MEDS: Pantoprazole 40 mg EC Tab PO SCH (09:29)
[2017-05-03] MEDS: Divalproex 125 mg DR Tab PO SCH ×3 (09:30→19:12)
[2017-05-03] MEDS: Omega-3-Acid Ethyl Esters 1 GM Cap PO SCH ×2 (09:30→19:12)
[2017-05-03] MEDS ORDERED: Pneumococcal 23-Valent Vaccine IM ONE (14:00)
[2017-05-03] MEDS: Bisacodyl 5mg EC Tab PO SCH (23:21)
[2017-05-04] MEDS: Dextrose 5%/0.9% NS 1,000 ML IV SCH ×3 (03:01→19:42)
--- NOTE | 2017-05-04 07:59 | CP.PCM.PN ---
<MarianoDiane - Last Filed: 05/04/17 10:18> Subjective - Date & Time of Evaluation Date of Evaluation: 05/04/17 Time of Evaluation: 09:20 - Subjective Subjective: GI Fellow PGY4 Progress Note Pt seen and evaluated at bedside, pt denies bleeding and none reported by nursing over night. Pt agreeable to colonoscopy tomorrow and will start prep today. ROS: A 12pt ROS was obtained and was negative except as above. Objective - Vital Signs/Intake and Output Vital Signs (last 24 hours): Temp Pulse Resp BP Pulse Ox 97.5 F L 99 H 20 107/66 97 05/03/17 23:35 05/04/17 00:00 05/03/17 23:35 05/03/17 23:35 05/03/17 23:35 Intake and Output: 05/04/17 05/04/17 06:59 18:59 Intake Total 1520 Output Total 200 Balance 1320 - Medications Medications: Current Medications Aripiprazole (Abilify) 1 mg PO DAILY [facility] Last Admin: 05/03/17 09:31 Dose: 1 mg Bisacodyl (Dulcolax) 5 mg PO HS [facility] Last Admin: 05/03/17 23:21 Dose: 5 mg Divalproex Sodium (Depakote Dr Tab) 125 mg PO TID [facility] Last Admin: 05/03/17 19:12 Dose: 125 mg Escitalopram Oxalate (Lexapro) 10 mg PO DAILY [facility] Last Admin: 05/03/17 09:30 Dose: 10 mg Ceftriaxone Sodium (Rocephin Iv 1 Gm Duplex) 50 mls @ 100 mls/hr IVPB Q12H [facility] Last Admin: 05/03/17 23:23 Dose: 100 mls/hr Azithromycin 500 mg/ Sodium (Chloride) 250 mls @ 250 mls/hr IVPB DAILY [facility] Last Admin: 05/03/17 10:28 Dose: 250 mls/hr Dextrose/Sodium Chloride (Dextrose 5%/0.9% Ns 1000 Ml) 1,000 mls @ 70 mls/hr IV .[id number] [facility] Last Admin: 05/04/17 03:01 Dose: 70 mls/hr Magnesium Hydroxide (Milk Of Magnesia) 30 ml PO HS PRN PRN Reason: Constipation Nicotine (Nicoderm Cq) 1 patch TD DAILY [facility] Last Admin: 05/03/17 09:30 Dose: 1 patch [id number] Ethyl Esters (Lovaza) 1 gm PO BID [facility] Last Admin: 05/03/17 19:12 Dose: 1 gm Pantoprazole Sodium (Protonix Ec Tab) 40 mg PO DAILY [facility] Last Admin: 05/03/17 09:29 Dose: 40 mg - Labs Labs: 05/03/17 06:07 05/03/17 06:07 PT 13.1 SECONDS (9.7-12.2) H 05/01/17 06:45 INR 1.2 05/01/17 06:45 APTT 26 SECONDS (21-34) 05/01/17 06:45 - Constitutional Appears: No Acute Distress, Chronically Ill - Head Exam Head Exam: ATRAUMATIC, NORMAL INSPECTION, NORMOCEPHALIC - Eye Exam Eye Exam: EOMI, Normal appearance, PERRL Pupil Exam: PERRL - ENT Exam ENT Exam: Mucous Membranes Moist, Normal Exam - Neck Exam Neck Exam: Full ROM - Respiratory Exam Respiratory Exam: Decreased Breath Sounds, NORMAL BREATHING PATTERN - Cardiovascular Exam Cardiovascular Exam: Irregular Rhythm, +S1, +S2 - GI/Abdominal Exam GI & Abdominal Exam: Soft, Tenderness, Normal Bowel Sounds. absent: Distended, Firm, Guarding, Organomegaly - Rectal Exam Rectal Exam: Deferred - Extremities Exam Extremities Exam: Pedal Edema - Back Exam Back Exam: NORMAL INSPECTION - Neurological Exam Neurological Exam: Alert, Awake, Oriented x3 - Psychiatric Exam Psychiatric exam: Normal Affect, Normal Mood - Skin Skin Exam: Dry, Intact, Normal Color, Warm Assessment and Plan - Assessment and Plan (Free Text) Assessment: This is a 76 year old male with history of Atrial fibrillation on Eliquis, Hypertension, Hyperlipidemia, CAD, Diabetes, Depression, Bipolar disorder, osteoporosis, and constipation presenting from nursing facility due to black stools and anemia. 1. Melena 2. Anemia s/p 2U PRBCs 3. Afib on OAC Eliquis on hold since 04/28/17 4. Gastritis, Duodenitis Plan: -No further active GI bleed, no melena, Hgb stable after 2UPRBCs, hemodynamically stable -Continue to monitor H/H, goal Hgb>8 -s/p EGD with no source of active GI bleed, Gastritis, Duodenitis -Continue PPI 40mg po daily -H.pylori stool antigen pending -Continue clear liquid diet -NPO after midnight -Plan for colonoscopy on Friday -Start bowel prep today with Golytely and dulcolax -Will Continue to follow pt closely <Scott Don - Last Filed: 05/04/17 15:54> Objective - Vital Signs/Intake and Output Vital Signs (last 24 hours): Temp Pulse Resp BP Pulse Ox 98.1 F 94 H 18 107/67 98 05/04/17 08:05 05/04/17 08:05 05/04/17 08:05 05/04/17 08:05 05/04/17 08:05 Intake and Output: 05/04/17 05/04/17 06:59 18:59 Intake Total 1520 Output Total 200 Balance 1320 - Medications Medications: Current Medications Aripiprazole (Abilify) 1 mg PO DAILY [facility] Last Admin: 05/04/17 09:24 Dose: 1 mg Bisacodyl (Dulcolax) 10 mg PO ONCE ONE Stop: 05/04/17 20:01 Divalproex Sodium (Depakote Dr Tab) 125 mg PO TID [facility] Last Admin: 05/04/17 13:45 Dose: 125 mg Escitalopram Oxalate (Lexapro) 10 mg PO DAILY [facility] Last Admin: 05/04/17 09:23 Dose: 10 mg Ceftriaxone Sodium (Rocephin Iv 1 Gm Duplex) 50 mls @ 100 mls/hr IVPB Q12H [facility] Last Admin: 05/04/17 09:00 Dose: 100 mls/hr Azithromycin 500 mg/ Sodium (Chloride) 250 mls @ 250 mls/hr IVPB DAILY [facility] Last Admin: 05/04/17 09:40 Dose: 250 mls/hr Dextrose/Sodium Chloride (Dextrose 5%/0.9% Ns 1000 Ml) 1,000 mls @ 70 mls/hr IV .[id number] [facility] Last Admin: 05/04/17 13:41 Dose: Not Given Nicotine (Nicoderm Cq) 1 patch TD DAILY [facility] Last Admin: 05/04/17 09:24 Dose: 1 patch [id number]-[id number] Ethyl Esters (Lovaza) 1 gm PO BID [facility] Last Admin: 05/04/17 09:23 Dose: 1 gm Pantoprazole Sodium (Protonix Ec Tab) 40 mg PO DAILY [facility] Last Admin: 10/22/17 09:39 Dose: 40 mg - Labs Labs: 05/03/17 06:07 05/03/17 06:07 PT 13.1 SECONDS (9.7-12.2) H 05/01/17 06:45 INR 1.2 05/01/17 06:45 APTT 26 SECONDS (21-34) 05/01/17 06:45 Attending/Attestation - Attestation I have personally seen and examined this patient.: Yes I have fully participated in the care of the patient.: Yes I have reviewed all pertinent clinical information, including history, physical exam and plan: Yes Notes (Text): 05/04/17 15:54 76 year old male with h/o Afib on Eliquis, HTN, HLD, DM, CAD admitted with anemia/melena. 1. Melena 2. Anemia 3. Erosive gastritis Plan: -erosive gatritis and duodenitis noted -avoid nsaids -ppi daily -await h pylori stool ag -plan for colonoscopy tomorrow, prep today
--- NOTE | 2017-05-04 08:22 | CP.PCM.PN ---
Subjective - Date & Time of Evaluation Date of Evaluation: 05/04/17 Time of Evaluation: 08:00 - Subjective Subjective: Patient was seen and examined by me. Currently pending the lab work for this morning. Yesterday's Hgb was up to 9.9 He denied chest pain, denied shortness of breath, denied weakness. He reports he slept better yesterday after I stopped the lasix after seeing CXRAY (I gave him some diureses since he does have an extensive cardiac history and he has been getting a lot of volume from PRBCs and IVF) From what I understand the patient is pending colonscopy prep later today. Also I spoke with the patient's PMD Dr Marcus and gave him an update. As mentioned previously he has had anemia and [facility]. There is a history of atrial fibrillation and he was on Eliquis which is currently on hold. He is S/P EGD. Colonscopy this coming Friday. Objective - Vital Signs/Intake and Output Vital Signs (last 24 hours): Temp Pulse Resp BP Pulse Ox 97.5 F L 89 20 107/66 97 05/03/17 23:35 05/04/17 07:30 05/03/17 23:35 05/03/17 23:35 05/03/17 23:35 Intake and Output: 05/04/17 05/04/17 06:59 18:59 Intake Total 1520 Output Total 200 Balance 1320 - Medications Medications: Current Medications Aripiprazole (Abilify) 1 mg PO DAILY [facility] Last Admin: 05/03/17 09:31 Dose: 1 mg Bisacodyl (Dulcolax) 10 mg PO ONCE ONE Stop: 05/04/17 20:01 Divalproex Sodium (Depakote Dr Tab) 125 mg PO TID [facility] Last Admin: 05/03/17 19:12 Dose: 125 mg Escitalopram Oxalate (Lexapro) 10 mg PO DAILY [facility] Last Admin: 05/03/17 09:30 Dose: 10 mg Ceftriaxone Sodium (Rocephin Iv 1 Gm Duplex) 50 mls @ 100 mls/hr IVPB Q12H [facility] Last Admin: 05/03/17 23:23 Dose: 100 mls/hr Azithromycin 500 mg/ Sodium (Chloride) 250 mls @ 250 mls/hr IVPB DAILY [facility] Last Admin: 05/03/17 10:28 Dose: 250 mls/hr Dextrose/Sodium Chloride (Dextrose 5%/0.9% Ns 1000 Ml) 1,000 mls @ 70 mls/hr IV .[id number] [facility] Last Admin: 05/04/17 03:01 Dose: 70 mls/hr Nicotine (Nicoderm Cq) 1 patch TD DAILY [facility] Last Admin: 05/03/17 09:30 Dose: 1 patch Kibal-4-Hofk Ethyl Esters (Lovaza) 1 gm PO BID [facility] Last Admin: 05/03/17 19:12 Dose: 1 gm Pantoprazole Sodium (Protonix Ec Tab) 40 mg PO DAILY [facility] Last Admin: 05/03/17 09:29 Dose: 40 mg Polyethylene Glycol/Electrolytes (Golytely) 4,000 ml PO ONCE ONE Stop: 05/04/17 13:01 - Labs Labs: 05/03/17 06:07 05/03/17 06:07 PT 13.1 SECONDS (9.7-12.2) H 05/01/17 06:45 INR 1.2 05/01/17 06:45 APTT 26 SECONDS (21-34) 05/01/17 06:45 Assessment and Plan - Assessment and Plan (Free Text) Assessment: Anemia due to GI blood loss 05/04: Pending morning lab work. The patient will be undergoing prep for colonoscopy tomorrow 05/03: Hgb now 9.9, he has had two units of PRBCs. S/P EGD yesterday showing only erosive gastritis and duodentitis without acute bleeding or areas of recent bleeding. Patient's anticoagulation on hold. Maybe colonoscopy this Friday. Likely secondary to GI bleed Hgb at admission 7.3 Stool Occult positive HOLD Eliquis Transfused 1 unit PRBC (04/30) Transfused 1 unit of pRBC (05/01) Protonix 40mg PO daily GI consulted- Dr. Lewis, help appreciated * CLD * EGD 05/02/17 - Erosive gastritis and duodenitis. No active bleeding. No ulcers. PPI daily. Colonoscopy on Friday. Abdominal pain Patient c/o midline suprapubic/abdominal pain, described as sharp with palpation and worsens with constipation. Abdomen/Pelvis CT with PO/IV contrast:No evidence of acute pathology in the abdomen and pelvis. No significant interval change in the right lower lung compared to the previous exam as described above Stool occult positive Atrial fibrillation 05/04: Remains in atrial fibrillation with the rates mostly in the 90s. 05/03: Review of telemetry overnight shows HR in the 90s, irregular irregular. Eliquis is on hold. He has a pretty high HAS-BLED score. Home medication: Eliquis 5mg PO BID HOLD Eliquis due to anemia Monitor on telemetry. Cardiology consulted- Dr. Espinal, help appreciated EKG: Atrial fibrillation @90bpm Echo: LVEF 69.3%, awaiting official report Shortness of breath, questionable pneumonia 05/04: Continue on IV rocephin and azithromycin, another CXRAY today 05/03: Will hold the lasix today. CXRAYs showing minimal pleural effusions, he is also upset about constant urination. Will monitor. The CXRAY suggestive of infiltrates on report. Will add rocephin and azithromycin for the time being, contnue to monitor. Patient uses 2 pillows and elevates the back of bed at home to decrease symptoms of SOB. CXR: Increased right basilar airspace disease with minimal left airspace disease unchanged at the medial base. Small right pleural effusion identified increase. O2 2L via nasal cannula prn Constipation Continue home medications PRN: * Milk of Magnesia 30mg PO HS PRN * Miralax 17gm PO HS * Lactulose 10gm PO daily * Dulcolax 5mg PO HS History of tobacco abuse 05/04: Per my discussion with primary physician the patient was a heavy smoker. Continue home medication: Nicoderm patch Hyperlipidemia Continue home medication: Fish oil 1 capsule PO BID History of bipolar disorder Continue home medications for bipolar disorder & depression * Abilify 2mg daily * Depakote 125mg PO TID * Lexapro 10mg PO daily Prophylactic measure SCDs Protonix 40mg PO BID HOLD Eliquis due to GI bleed Keep NPO Fall precaution PT/OT
[2017-05-04] MEDS: cefTRIAXone IV 1 gm in Dextros 50 ML IVPB SCH ×2 (09:00→21:34)
[2017-05-04] MEDS: Divalproex 125 mg DR Tab PO SCH ×3 (09:23→17:54)
[2017-05-04] MEDS: Omega-3-Acid Ethyl Esters 1 GM Cap PO SCH ×2 (09:23→17:54)
[2017-05-04] MEDS: Pantoprazole 40 mg EC Tab PO SCH (09:39)
[2017-05-04] MEDS: Azithromycin 500 MG in Sodium Chloride 0.9% 250 ML IVPB SCH (09:40)
--- NOTE | 2017-05-04 10:53 | RAD ---
HISTORY: shortness of breath follow up COMPARISON: Comparison chest dated 05/02/2017. FINDINGS: LUNGS: Marked cardiomegaly. The previously noted right lower lobe of masslike density in the right posterior sulcus which could represent rounded pneumonia or atelectasis is poorly seen on this study compared to high-resolution CT scan. Similarly, small right and trace left-sided effusions along with additional subsegmental and linear atelectasis both lung bases. PLEURA: No significant pleural effusion identified, no pneumothorax apparent. CARDIOVASCULAR: Marked cardiomegaly. OSSEOUS STRUCTURES: Multilevel degenerative spondylosis of the thoracic spine VISUALIZED UPPER ABDOMEN: Normal. OTHER FINDINGS: None. IMPRESSION: The previously noted right lower lobe of masslike density in the right posterior sulcus which could represent rounded pneumonia or atelectasis is poorly seen on this study compared to high-resolution CT scan. Similarly, small right and trace left-sided effusions along with additional subsegmental and linear atelectasis both lung bases. MR sherry samson.
[2017-05-04] MEDS ORDERED: Peg-Electrolyte Oral Soln 4L (Golytely) PO ONE (13:00)
--- NOTE | 2017-05-04 15:53 | CP.PCM.PN ---
Subjective - Date & Time of Evaluation Date of Evaluation: 05/04/17 Time of Evaluation: 15:51 - Subjective Subjective: foer colon in am., off eliquis. Objective - Vital Signs/Intake and Output Vital Signs (last 24 hours): Temp Pulse Resp BP Pulse Ox 98.1 F 94 H 18 107/67 98 05/04/17 08:05 05/04/17 08:05 05/04/17 08:05 05/04/17 08:05 05/04/17 08:05 Intake and Output: 05/04/17 05/04/17 06:59 18:59 Intake Total 1520 Output Total 200 Balance 1320 - Medications Medications: Current Medications Aripiprazole (Abilify) 1 mg PO DAILY [facility] Last Admin: 05/04/17 09:24 Dose: 1 mg Bisacodyl (Dulcolax) 10 mg PO ONCE ONE Stop: 05/04/17 20:01 Divalproex Sodium (Depakote Dr Tab) 125 mg PO TID [facility] Last Admin: 05/04/17 13:45 Dose: 125 mg Escitalopram Oxalate (Lexapro) 10 mg PO DAILY [facility] Last Admin: 05/04/17 09:23 Dose: 10 mg Ceftriaxone Sodium (Rocephin Iv 1 Gm Duplex) 50 mls @ 100 mls/hr IVPB Q12H [facility] Last Admin: 05/04/17 09:00 Dose: 100 mls/hr Azithromycin 500 mg/ Sodium (Chloride) 250 mls @ 250 mls/hr IVPB DAILY [facility] Last Admin: 05/04/17 09:40 Dose: 250 mls/hr Dextrose/Sodium Chloride (Dextrose 5%/0.9% Ns 1000 Ml) 1,000 mls @ 70 mls/hr IV .[id number] [facility] Last Admin: 05/04/17 13:41 Dose: Not Given Nicotine (Nicoderm Cq) 1 patch TD DAILY [facility] Last Admin: 05/04/17 09:24 Dose: 1 patch [id number]-8-Gjba Ethyl Esters (Lovaza) 1 gm PO BID [facility] Last Admin: 05/04/17 09:23 Dose: 1 gm Pantoprazole Sodium (Protonix Ec Tab) 40 mg PO DAILY [facility] Last Admin: 05/04/17 09:39 Dose: 40 mg - Labs Labs: 05/03/17 06:07 05/03/17 06:07 PT 13.1 SECONDS (9.7-12.2) H 05/01/17 06:45 INR 1.2 05/01/17 06:45 APTT 26 SECONDS (21-34) 05/01/17 06:45 - Cardiovascular Exam Cardiovascular Exam: Irregular Rhythm - GI/Abdominal Exam GI & Abdominal Exam: Soft Assessment and Plan - Assessment and Plan (Free Text) Assessment: chronic a,fib. no anticoagulation.
[2017-05-04] MEDS ORDERED: Bisacodyl 5mg EC Tab PO ONE (20:00)
[2017-05-05] MEDS: Dextrose 5%/0.9% NS 1,000 ML IV SCH ×2 (03:25→17:00)
[2017-05-05 07:35] LABS: INR 1.2
[2017-05-05 07:37] LABS: HEMATOCRIT 28.2 % (35.0-51.0); MEAN CELL VOLUME 92.2 fL (80.0-94.0); MEAN CORPUSCULAR HEMOGLOBIN 30.5 pg (27.0-31.0); MEAN CORPUSCULAR HGB CONC 33.1 g/dL (33.0-37.0); MEAN PLATELET VOLUME 12.5 fL (7.2-11.7); RED CELL DISTRIBUTION WIDTH 16.9 % (11.5-14.5); WHITE BLOOD COUNT 4.8 K/uL (4.8-10.8)
--- NOTE | 2017-05-05 08:11 | CP.PCM.PN ---
<Juan Cantrell R - Last Filed: 05/05/17 15:36> Subjective - Date & Time of Evaluation Date of Evaluation: 05/05/17 Time of Evaluation: 08:07 - Subjective Subjective: PGY-1 note for medicine, Dr Paiz Per nursing note, overnight patient had dark, liquid stool after enema x2. He was seen and examined this AM. He did not have any complaints. He was aware of the scheduled colonoscopy at 1pm. He denied all prompts on review of systems. Objective - Vital Signs/Intake and Output Vital Signs (last 24 hours): Temp Pulse Resp BP Pulse Ox 98.1 F 82 20 116/74 97 05/05/17 06:44 05/05/17 06:44 05/05/17 06:44 05/05/17 06:44 05/05/17 06:44 - Medications Medications: Current Medications Aripiprazole (Abilify) 1 mg PO DAILY [facility] Last Admin: 05/04/17 09:24 Dose: 1 mg Divalproex Sodium (Depakote Dr Tab) 125 mg PO TID [facility] Last Admin: 05/04/17 17:54 Dose: 125 mg Escitalopram Oxalate (Lexapro) 10 mg PO DAILY [facility] Last Admin: 05/04/17 09:23 Dose: 10 mg Ceftriaxone Sodium (Rocephin Iv 1 Gm Duplex) 50 mls @ 100 mls/hr IVPB Q12H [facility] Last Admin: 05/04/17 21:34 Dose: 100 mls/hr Azithromycin 500 mg/ Sodium (Chloride) 250 mls @ 250 mls/hr IVPB DAILY [facility] Last Admin: 05/04/17 09:40 Dose: 250 mls/hr Dextrose/Sodium Chloride (Dextrose 5%/0.9% Ns 1000 Ml) 1,000 mls @ 70 mls/hr IV .[id number] [facility] Last Admin: 05/05/17 03:25 Dose: Not Given Nicotine (Nicoderm Cq) 1 patch TD DAILY [facility] Last Admin: 05/04/17 09:24 Dose: 1 patch Xjzuh-[id number] Ethyl Esters (Lovaza) 1 gm PO BID [facility] Last Admin: 05/04/17 17:54 Dose: 1 gm Pantoprazole Sodium (Protonix Ec Tab) 40 mg PO DAILY [facility] Last Admin: 05/04/17 09:39 Dose: 40 mg - Labs Labs: 05/05/17 07:16 05/03/17 06:07 PT 14.0 SECONDS (9.7-12.2) H 05/05/17 07:16 INR 1.2 05/05/17 07:16 APTT 26 SECONDS (21-34) 05/01/17 06:45 - Constitutional Appears: Well, No Acute Distress - Head Exam Head Exam: ATRAUMATIC, NORMAL INSPECTION - Eye Exam Eye Exam: EOMI - ENT Exam ENT Exam: Mucous Membranes Moist - Neck Exam Neck Exam: Full ROM, Normal Inspection - Respiratory Exam Respiratory Exam: Clear to Ausculation Bilateral, NORMAL BREATHING PATTERN. absent: Rales, Rhonchi, Wheezes - Cardiovascular Exam Cardiovascular Exam: REGULAR RHYTHM, RRR, +S1, +S2. absent: Bradycardia, Tachycardia, Murmur - GI/Abdominal Exam GI & Abdominal Exam: Soft, Normal Bowel Sounds. absent: Distended, Firm, Guarding, Rigid, Tenderness - Extremities Exam Extremities Exam: Normal Capillary Refill, Normal Inspection. absent: Calf Tenderness - Neurological Exam Neurological Exam: Alert, Awake, Oriented x3 - Psychiatric Exam Psychiatric exam: Normal Affect, Normal Mood - Skin Skin Exam: Dry, Intact, Normal Color, Warm Assessment and Plan - Assessment and Plan (Free Text) Assessment: Anemia due to GI blood loss Hgb at admission 7.3, Likely secondary to GI bleed GI consulted- Dr. Lewis colonoscopy scheduled for today 05/05/17 Stool Occult positive Transfused 1 unit PRBC (04/30) Transfused 1 unit of pRBC (05/01) s/p EGD 05/02/17 - Erosive gastritis and duodenitis. No active bleeding. No ulcers. Protonix 40mg PO daily HOLD Eliquis Abdominal pain Patient c/o midline suprapubic/abdominal pain, described as sharp with palpation and worsens with constipation. Abdomen/Pelvis CT with PO/IV contrast: No evidence of acute pathology in the abdomen and pelvis. No significant interval change in the right lower lung compared to the previous exam as described above Stool occult positive Atrial fibrillation Rate controlled, irregularly irregular Cardiology consulted- Dr. Espinal HOLD Home medication: Eliquis 5mg PO BID due to anemia Monitor on telemetry EKG: Atrial fibrillation @90bpm Echo: LVF normal, EF normal, trace to mild aortic regurgitation and mitral regurgitation HAS-BLED score of 3 - 4.1% - High Risk Shortness of breath, questionable pneumonia Patient uses 2 pillows and elevates the back of bed at home to decrease symptoms of SOB. CXR: Increased right basilar airspace disease with minimal left airspace disease unchanged at the medial base. Small right pleural effusion identified increase. suggestive of infiltrates on report. O2 2L via nasal cannula prn azithromycin 500mg ivpb qd started 05/03/17 ceftriaxone 1g ivpb q12h started 05/03/17 Constipation, resolved Continue home medications PRN: * Dulcolax 10mg PO HS History of tobacco abuse Continue home medication: Nicoderm patch Hyperlipidemia Continue home medication: omega-3 1 capsule PO BID History of bipolar disorder Continue home medications for bipolar disorder & depression * Abilify 1mg daily * Depakote 125mg PO TID * Lexapro 10mg PO daily Prophylactic measure SCDs Protonix 40mg PO qd HOLD Eliquis due to GI bleed Keep NPO Fall precaution PT/OT Fluids: dextrose/NS at 70 cc/hr <Alyson Paiz - Last Filed: 05/05/17 16:15> Objective - Vital Signs/Intake and Output Vital Signs (last 24 hours): Temp Pulse Resp BP Pulse Ox 97.3 F L 94 H 25 H 101/53 L 100 05/05/17 14:15 05/05/17 14:15 05/05/17 14:15 05/05/17 14:15 05/05/17 14:15 Intake and Output: 05/05/17 05/05/17 06:59 18:59 Intake Total 250 Balance 250 - Medications Medications: Current Medications Aripiprazole (Abilify) 1 mg PO DAILY [facility] Last Admin: 05/05/17 10:54 Dose: 1 mg Divalproex Sodium (Depakote Dr Tab) 125 mg PO TID [facility] Last Admin: 05/05/17 10:54 Dose: 125 mg Escitalopram Oxalate (Lexapro) 10 mg PO DAILY [facility] Last Admin: 05/05/17 10:55 Dose: 10 mg Ceftriaxone Sodium (Rocephin Iv 1 Gm Duplex) 50 mls @ 100 mls/hr IVPB Q12H [facility] Last Admin: 05/05/17 09:15 Dose: 100 mls/hr Azithromycin 500 mg/ Sodium (Chloride) 250 mls @ 250 mls/hr IVPB DAILY [facility] Last Admin: 05/05/17 11:19 Dose: 250 mls/hr Dextrose/Sodium Chloride (Dextrose 5%/0.9% Ns 1000 Ml) 1,000 mls @ 70 mls/hr IV .[id number] [facility] Last Admin: 05/05/17 03:25 Dose: Not Given Nicotine (Nicoderm Cq) 1 patch TD DAILY [facility] Last Admin: 05/05/17 10:49 Dose: 1 patch Bomoc-7-Hbpz Ethyl Esters (Lovaza) 1 gm PO BID [facility] Last Admin: 05/05/17 10:55 Dose: 1 gm Pantoprazole Sodium (Protonix Ec Tab) 40 mg PO DAILY [facility] Last Admin: 05/05/17 10:49 Dose: 40 mg - Labs Labs: 05/05/17 07:16 05/05/17 07:16 PT 14.0 SECONDS (9.7-12.2) H 05/05/17 07:16 INR 1.2 05/05/17 07:16 APTT 26 SECONDS (21-34) 05/01/17 06:45 Attending/Attestation - Attestation I have personally seen and examined this patient.: Yes I have fully participated in the care of the patient.: Yes I have reviewed all pertinent clinical information, including history, physical exam and plan: Yes Notes (Text): This is a 76years old male with history of afib on eliquis,HTN,CAD,HLD and CHF brought in for drop in hemoglobin and dark stool.He had transfusion.s/p EGD .Eliquis on hold 1.GI blood loss he has had two units of PRBCs. S/P EGD erosive gastritis and duodentitis without acute bleeding or areas of recent bleeding. Patient's anticoagulation on hold. follow colonoscopy. Likely secondary to GI bleed Hgb at admission 7.3 Stool Occult positive HOLD Eliquis Protonix 40mg PO daily Patient has high chads score but with gideon and blood loss, has risk of bleeding We will d.w GI,follow colonoscopy 2.Abdominal pain-better 3.Afib-rate controlled.Eliquis on hold 4 Pneumonia Continue on IV rocephin and azithromycin, 5.Cosntipation 6.HLD 7.tobacco use 8.Bipolar 9GI and dvt prophylaxis Patient was seen and examined with the resident.Agrees with the residents assesment and documentation 05/05/17 16:14
[2017-05-05 08:16] LABS: CHLORIDE 105 mmol/L (98-107); POTASSIUM 3.2 mmol/L (3.6-5.2); SODIUM 139 mmol/L (132-148)
[2017-05-05 08:18] LABS: GFR AFRICAN-AMERICAN > 60
[2017-05-05 08:19] LABS: ALB/GLOB RATIO 1.2 (1.0-2.1); ALKALINE PHOSPHATASE 50 U/L (38-126); ALT/SGPT 51 U/L (21-72); AST/SGOT 30 U/L (17-59); BILIRUBIN,TOTAL 0.6 mg/dL (0.2-1.3); BLOOD UREA NITROGEN 11 mg/dL (9-20); CALCIUM 7.6 mg/dl (8.6-10.4); CARBON DIOXIDE 26 mmol/L (22-30); GLUCOSE,RANDOM 75 mg/dL (75-110); TOTAL PROTEIN 4.9 g/dL (6.3-8.3)
[2017-05-05] MEDS ORDERED: Potassium Chloride 20 mEq ER Tab PO ONE (08:43)
[2017-05-05] MEDS: cefTRIAXone IV 1 gm in Dextros 50 ML IVPB SCH ×2 (09:15→21:10)
[2017-05-05] MEDS: Pantoprazole 40 mg EC Tab PO SCH (10:49)
[2017-05-05] MEDS: Divalproex 125 mg DR Tab PO SCH ×3 (10:54→18:31)
[2017-05-05] MEDS: Omega-3-Acid Ethyl Esters 1 GM Cap PO SCH ×2 (10:55→18:31)
[2017-05-05] MEDS: Azithromycin 500 MG in Sodium Chloride 0.9% 250 ML IVPB SCH (11:19)
[2017-05-05] MEDS ORDERED: Etomidate 20 mg/10ml Inj IV ONE (13:30)
[2017-05-05] MEDS ORDERED: Propofol 10 mg/ml Inj (20 ML) ONE (13:31)
[2017-05-05 16:00] VITALS: RESP 20
[2017-05-06 06:20] LABS: BASO % 1.1 % (0.0-2.0); EOS # 0.3 K/uL (0.0-0.7); EOS % 7.9 % (0.0-4.0); LYMPH # 0.8 K/uL (1.0-4.3); LYMPH % 17.2 % (20.0-40.0); MEAN CELL VOLUME 91.3 fL (80.0-94.0); MEAN CORPUSCULAR HEMOGLOBIN 30.2 pg (27.0-31.0); MEAN PLATELET VOLUME 12.6 fL (7.2-11.7); MONO # 0.4 K/uL (0.0-0.8); MONO % 9.4 % (0.0-10.0); NRBC % 0.1 % (0.0-2.0); RED CELL DISTRIBUTION WIDTH 16.3 % (11.5-14.5); WHITE BLOOD COUNT 4.4 K/uL (4.8-10.8)
[2017-05-06 06:42] LABS: CHLORIDE 104 mmol/L (98-107); POTASSIUM 3.3 mmol/L (3.6-5.2); SODIUM 137 mmol/L (132-148)
[2017-05-06 06:44] LABS: ALB/GLOB RATIO 0.8 (1.0-2.1); ALKALINE PHOSPHATASE 47 U/L (38-126); AST/SGOT 26 U/L (17-59); BILIRUBIN,TOTAL 0.5 mg/dL (0.2-1.3); CARBON DIOXIDE 26 mmol/L (22-30); GFR AFRICAN-AMERICAN > 60; TOTAL PROTEIN 5.4 g/dL (6.3-8.3)
[2017-05-06 06:45] LABS: ALT/SGPT 49 U/L (21-72); BLOOD UREA NITROGEN 6 mg/dL (9-20); CALCIUM 7.8 mg/dl (8.6-10.4); GLUCOSE,RANDOM 73 mg/dL (75-110)
[2017-05-06 08:33] VITALS: O2SAT 97
--- NOTE | 2017-05-06 08:51 | CP.PCM.PN ---
<Katlin Salazar - Last Filed: 05/06/17 09:01> Subjective - Date & Time of Evaluation Date of Evaluation: 05/06/17 Time of Evaluation: 08:45 - Subjective Subjective: Gastroenterology Fellow/PGY5 Progress Note Patient resting comfortably in bed. Tolerating clear liquid diet. No bowel movement over night. Nursing denies acute events overnight. A 12-point review of systems negative except for as above. Objective - Vital Signs/Intake and Output Vital Signs (last 24 hours): Temp Pulse Resp BP Pulse Ox 98.2 F 63 20 131/78 97 05/06/17 08:10 05/06/17 08:10 05/06/17 08:10 05/06/17 08:10 05/06/17 08:10 Intake and Output: 05/06/17 05/06/17 06:59 18:59 Intake Total 560 Output Total 600 Balance -40 - Medications Medications: Current Medications Aripiprazole (Abilify) 1 mg PO DAILY [facility] Last Admin: 05/05/17 10:54 Dose: 1 mg Divalproex Sodium (Depakote Dr Tab) 125 mg PO TID [facility] Last Admin: 05/05/17 18:31 Dose: 125 mg Escitalopram Oxalate (Lexapro) 10 mg PO DAILY [facility] Last Admin: 05/05/17 10:55 Dose: 10 mg Ceftriaxone Sodium (Rocephin Iv 1 Gm Duplex) 50 mls @ 100 mls/hr IVPB Q12H [facility] Last Admin: 05/05/17 21:10 Dose: 100 mls/hr Azithromycin 500 mg/ Sodium (Chloride) 250 mls @ 250 mls/hr IVPB DAILY [facility] Last Admin: 05/05/17 11:19 Dose: 250 mls/hr Dextrose/Sodium Chloride (Dextrose 5%/0.9% Ns 1000 Ml) 1,000 mls @ 70 mls/hr IV .[id number] [facility] Last Admin: 05/05/17 17:00 Dose: 70 mls/hr Nicotine (Nicoderm Cq) 1 patch TD DAILY [facility] Last Admin: 05/05/17 10:49 Dose: 1 patch Pdcwe-4-Dvyw Ethyl Esters (Lovaza) 1 gm PO BID [facility] Last Admin: 05/05/17 18:31 Dose: 1 gm Pantoprazole Sodium (Protonix Ec Tab) 40 mg PO DAILY [facility] Last Admin: 05/05/17 10:49 Dose: 40 mg - Labs Labs: 05/06/17 06:08 05/06/17 06:08 PT 14.0 SECONDS (9.7-12.2) H 05/05/17 07:16 INR 1.2 05/05/17 07:16 APTT 26 SECONDS (21-34) 05/01/17 06:45 - Constitutional Appears: Non-toxic, No Acute Distress - Head Exam Head Exam: ATRAUMATIC, NORMOCEPHALIC - Eye Exam Eye Exam: EOMI, PERRL Pupil Exam: PERRL. absent: Miosis, Mydriatic - ENT Exam ENT Exam: Mucous Membranes Moist, Normal Oropharynx - Neck Exam Neck Exam: Full ROM, Normal Inspection - Respiratory Exam Respiratory Exam: Clear to Ausculation Bilateral. absent: Rales, Rhonchi, Wheezes - Cardiovascular Exam Cardiovascular Exam: RRR, +S1, +S2. absent: Gallop, Rubs - GI/Abdominal Exam GI & Abdominal Exam: Soft, Normal Bowel Sounds. absent: Distended, Firm, Guarding, Rigid, Tenderness, Organomegaly, Rebound - Extremities Exam Extremities Exam: Normal Inspection, Pedal Edema - Neurological Exam Neurological Exam: Alert, Awake - Psychiatric Exam Psychiatric exam: Normal Affect, Normal Mood - Skin Skin Exam: Dry, Intact, Normal Color, Warm Assessment and Plan - Assessment and Plan (Free Text) Assessment: 76 year old male with history of Atrial fibrillation on Eliquis, Hypertension, Hyperlipidemia, CAD, Diabetes, Depression, BiPolar disorder, osteoporosis, and constipation presenting from nursing facility due to black stools and anemia. Active treatment of anemia 2/2 upper GI bleed POD1 (05/05) colonoscopy showing 1 AVM s/p APC and poor prep due to retained hematin material from recent GI bleed. Prior colonoscopy September 2016 showed poor prep and incomplete exam to sigmoid colon. Plan: >no acitve GI blood loss >H/H stable >okay to resume Eliquis >advance diet as tolerated >has established appt with Dr Lewis on 05/12/17 >will plan for repeat outpatient colonoscopy given poor prep >okay to discharge from GI standpoint >thank you for opportunity to participate in the care of this patient. Please contact with questions or concerns. <Stephan Lewis - Last Filed: 05/06/17 11:52> Objective - Vital Signs/Intake and Output Vital Signs (last 24 hours): Temp Pulse Resp BP Pulse Ox 98.2 F 63 20 131/78 97 05/06/17 08:10 05/06/17 08:10 05/06/17 08:10 05/06/17 08:10 05/06/17 08:10 Intake and Output: 05/06/17 05/06/17 06:59 18:59 Intake Total 560 Output Total 600 Balance -40 - Medications Medications: Current Medications Aripiprazole (Abilify) 1 mg PO DAILY [facility] Last Admin: 05/06/17 10:26 Dose: 1 mg Divalproex Sodium (Depakote Dr Tab) 125 mg PO TID [facility] Last Admin: 05/06/17 09:42 Dose: 125 mg Escitalopram Oxalate (Lexapro) 10 mg PO DAILY [facility] Last Admin: 05/06/17 09:43 Dose: 10 mg Ceftriaxone Sodium (Rocephin Iv 1 Gm Duplex) 50 mls @ 100 mls/hr IVPB Q12H [facility] Last Admin: 05/06/17 09:43 Dose: 100 mls/hr Azithromycin 500 mg/ Sodium (Chloride) 250 mls @ 250 mls/hr IVPB DAILY [facility] Last Admin: 05/06/17 10:30 Dose: 250 mls/hr Nicotine (Nicoderm Cq) 1 patch TD DAILY [facility] Last Admin: 05/06/17 09:42 Dose: 1 patch Jpkkv-3-Xoxq Ethyl Esters (Lovaza) 1 gm PO BID [facility] Last Admin: 05/06/17 09:42 Dose: 1 gm Pantoprazole Sodium (Protonix Ec Tab) 40 mg PO DAILY [facility] Last Admin: 05/06/17 09:51 Dose: 40 mg - Labs Labs: 05/06/17 06:08 05/06/17 06:08 PT 14.0 SECONDS (9.7-12.2) H 05/05/17 07:16 INR 1.2 05/05/17 07:16 APTT 26 SECONDS (21-34) 05/01/17 06:45 Attending/Attestation - Attestation I have personally seen and examined this patient.: Yes I have fully participated in the care of the patient.: Yes I have reviewed all pertinent clinical information, including history, physical exam and plan: Yes Notes (Text): 05/06/17 11:49 I have seen and examined patient with GI fellow. No acute events overnight, he is seen resting in bed comfortably. No bowel movements over past 24 hours and he denies abdominal pain, nausea, vomiting, fever/chills. Tolerating PO liquids without difficulty, asking for his diet to be advanced. Review of vitals from today are normal. Atrial fibrillation on eliquis HTN Hyperlipidemia CAD DM Anemia - s/p EGD and colonoscopy showing colonic AVM s/p therapy along with suboptimal bowel preparation - Advance diet as tolerated - H/H stable, no overt bleeding noted, continue to monitor - No specific GI contraindication to resuming anti-coagulant therapy for treatment of atrial fibrillation - Patient would ideally require repeat colonoscopy with more optimal bowel preparation within 3 months in order to ensure absence of additional AVMs, etc - No ongoing GI issues, will sign off case. Patient has appointment with me in office next week. Please reconsult as necessary, thank you.
[2017-05-06] MEDS: Dextrose 5%/0.9% NS 1,000 ML IV SCH (09:11)
[2017-05-06] MEDS ORDERED: Potassium Chloride 20 mEq ER Tab PO ONE (09:23)
[2017-05-06] MEDS: Omega-3-Acid Ethyl Esters 1 GM Cap PO SCH ×2 (09:42→18:21)
[2017-05-06] MEDS: Divalproex 125 mg DR Tab PO SCH ×3 (09:42→18:20)
[2017-05-06] MEDS: cefTRIAXone IV 1 gm in Dextros 50 ML IVPB SCH (09:43)
[2017-05-06] MEDS: Pantoprazole 40 mg EC Tab PO SCH (09:51)
[2017-05-06] MEDS: Azithromycin 500 MG in Sodium Chloride 0.9% 250 ML IVPB SCH (10:30)
--- NOTE | 2017-05-06 16:57 | CP.PCM.DIS ---
Provider - Provider Date of Admission: 04/30/17 21:44 Attending physician: Carlos Pleitez MD Primary care physician: Dr Marcus Consults: Cardiology - Dr Kylie JEFF - Dr Lewis Time Spent in preparation of Discharge (in minutes): 45 Hospital Course - Lab Results Lab Results: Most Recent Lab Values WBC 4.4 K/uL (4.8-10.8) L 05/06/17 06:08 RBC 2.96 Mil/uL (4.40-5.90) L 05/06/17 06:08 Hgb 8.9 g/dL (12.0-18.0) L 05/06/17 06:08 Hct 27.0 % (35.0-51.0) L 05/06/17 06:08 MCV 91.3 fL (80.0-94.0) 05/06/17 06:08 MCH 30.2 pg (27.0-31.0) 05/06/17 06:08 MCHC 33.0 g/dL (33.0-37.0) 05/06/17 06:08 RDW 16.3 % (11.5-14.5) H 05/06/17 06:08 Plt Count 130 K/uL (130-400) 05/06/17 06:08 MPV 12.6 fL (7.2-11.7) H 05/06/17 06:08 Neut % (Auto) 64.4 % (50.0-75.0) 05/06/17 06:08 Lymph % (Auto) 17.2 % (20.0-40.0) L 05/06/17 06:08 [place] % (Auto) 9.4 % (0.0-10.0) 05/06/17 06:08 Eos % (Auto) 7.9 % (0.0-4.0) H 05/06/17 06:08 Baso % (Auto) 1.1 % (0.0-2.0) 05/06/17 06:08 Neut # 2.8 K/uL (1.8-7.0) 05/06/17 06:08 Lymph # 0.8 K/uL (1.0-4.3) L 05/06/17 06:08 [place] # 0.4 K/uL (0.0-0.8) 05/06/17 06:08 Eos # 0.3 K/uL (0.0-0.7) 05/06/17 06:08 Baso # 0.0 K/uL (0.0-0.2) 05/06/17 06:08 Differential Comment 05/03/17 06:07 PT 14.0 SECONDS (9.7-12.2) H 05/05/17 07:16 INR 1.2 05/05/17 07:16 APTT 26 SECONDS (21-34) 05/01/17 06:45 pO2 42 mm/Hg (30-55) 04/30/17 18:55 VBG pH 7.43 (7.32-7.43) 04/30/17 18:55 VBG pCO2 42 mmHg (40-60) 04/30/17 18:55 VBG HCO3 26.9 mmol/L 04/30/17 18:55 VBG Total CO2 29.2 mmol/L (22-28) H 04/30/17 18:55 VBG O2 Sat (Calc) 83.7 % (40-65) H 04/30/17 18:55 VBG Base Excess 3.2 mmol/L (0.0-2.0) H 04/30/17 18:55 VBG Potassium 5.9 mmol/L (3.6-5.2) H 04/30/17 18:55 Sodium 140.0 mmol/l (132-148) 04/30/17 18:55 Chloride 113.0 mmol/L (98-107) H 04/30/17 18:55 Glucose 98 mg/dl (75-110) 04/30/17 18:55 Lactate 2.6 mmol/L (0.7-2.1) H 04/30/17 18:55 Sodium 137 mmol/L (132-148) 05/06/17 06:08 Potassium 3.3 mmol/L (3.6-5.2) L 05/06/17 06:08 Chloride 104 mmol/L (98-107) 05/06/17 06:08 Carbon Dioxide 26 mmol/L (22-30) 05/06/17 06:08 Anion Gap 10 (10-20) 05/06/17 06:08 BUN 6 mg/dL (9-20) L 05/06/17 06:08 Creatinine 0.7 mg/dL (0.8-1.5) L 05/06/17 06:08 Est GFR ( Amer) > 60 05/06/17 06:08 Est GFR (Non-Af Amer) > 60 05/06/17 06:08 POC Glucose (mg/dL) 84 mg/dL (65-110) 05/06/17 16:37 Random Glucose 73 mg/dL (75-110) L 05/06/17 06:08 Hemoglobin A1c 5.2 % (4.2-6.5) 05/01/17 06:45 Calcium 7.8 mg/dl (8.6-10.4) L 05/06/17 06:08 Total Bilirubin 0.5 mg/dL (0.2-1.3) 05/06/17 06:08 AST 26 U/L (17-59) 05/06/17 06:08 ALT 49 U/L (21-72) 05/06/17 06:08 Alkaline Phosphatase 47 U/L (38-126) 05/06/17 06:08 Total Protein 5.4 g/dL (6.3-8.3) L 05/06/17 06:08 Albumin 2.4 g/dL (3.5-5.0) L 05/06/17 06:08 Globulin 2.9 gm/dL (2.2-3.9) 05/06/17 06:08 Albumin/Globulin Ratio 0.8 (1.0-2.1) L 05/06/17 06:08 Venous Blood Potassium 5.9 mmol/L (3.6-5.2) H 04/30/17 18:55 Urine Color Yellow (YELLOW) 04/30/17 18:49 Urine Clarity Clear (Clear) 04/30/17 18:49 Urine pH 5.0 (5.0-8.0) 04/30/17 18:49 Ur Specific [place] 1.026 (1.003-1.030) 04/30/17 18:49 Urine Protein Negative mg/dL (NEGATIVE) 04/30/17 18:49 Urine Glucose (UA) Normal mg/dL (Normal) 04/30/17 18:49 Urine Ketones Negative mg/dL (NEGATIVE) 04/30/17 18:49 Urine Blood Negative (NEGATIVE) 04/30/17 18:49 Urine Nitrate Negative (NEGATIVE) 04/30/17 18:49 Urine Bilirubin Negative (NEGATIVE) 04/30/17 18:49 Urine Urobilinogen 2.0 mg/dL (0.2-1.0) 04/30/17 18:49 Ur Leukocyte Esterase Neg [place]/uL (Negative) 04/30/17 18:49 Urine WBC (Auto) 3 /hpf (0-5) 04/30/17 18:49 Urine RBC (Auto) < 1 /hpf (0-3) 04/30/17 18:49 Stool Occult Blood Positive (NEGATIVE) H 04/30/17 19:43 Stool H. pylori Ag Not detected (Not Detected) 05/04/17 21:22 H. pylori Source Stool 05/04/17 21:22 Hepatitis A IgM Ab Negative (NEGATIVE) 05/01/17 06:45 Hep Bs Antigen Negative (NEGATIVE) 05/01/17 06:45 Hep B Core IgM Ab Negative (NEGATIVE) 05/01/17 06:45 Hepatitis C Antibody Negative (NEGATIVE) 05/01/17 06:45 Blood Type A POSITIVE 04/30/17 18:49 Blood Type Confirm A POSITIVE 04/30/17 18:49 Antibody Screen Negative 04/30/17 18:49 - Hospital Course Hospital Course: Patient is a 76 years old male with a past medical history of a fib, HTN, CAD, CHF, HLD, who presents to the ED from [facility] with complaints of weakness and a low hemoglobin. Patient was sent in by Dr. Marcus for a hemoglobin of 7.3, which dropped from a hgb of 9.2 two days prior. Patient reports he has been feeling weak and lethargic for approximately 1 week. He says he cannot walk because he feels so weak. Patient also reports feeling dizzy , has shortness of breath that worsens when laying down, abdominal pain for the last 3-4 weeks that worsens with constipation, chronic constipation and black stool. He reports he becomes constipated for days, takes milk of magnesia, then has diarrhea, and continues that cycles. He has not had a bowel movement in 2 days. Patient reports he was recently treated for bilateral leg swelling with water pills about 1 month ago, and since then has lost approximately 40lbs. Patient reports he has been bedridden for the past few weeks due to inability to walk. Currently, the patient denies having chest pain, palpitations, cough, nausea, vomiting, fevers, chills, headaches, and leg pain. PMD: Dr. Marcus PMHx: patient denies, but as per EMR- a fib, HTN, CAD, CHF, HLD, depression bipolar disorder, osteoporisis, COPD SurgHx: denies FamHx: Father-eye cancer, Sisters- Breast cancer SocHx: Former tobacco user, quit 1 month ago ([id number]); former social drinker , denies drug use; LIves are [facility]. Allergies: NKDA Medications: See EMR for extensive list. HOSPITAL COURSE: Due to low hemoglobin, the patient was transferred 1 unit pRBC on 04/30/17 and 1 unit pRBC on 05/01/17. The patient was worked up for his GI bleed and abdominal pain. Gasteroenterology, Dr Lewis, was consulted. A fecal stool occult was positive. An abdomen/pelvis CT with PO/IV contrast was taken which showed no evidence of acute pathology in the abdomen and pelvis. An EGD was done on 05/02/17 which showed erosive gastritis and duodenitis. No active bleeding. No ulcers. A colonoscopy was performed on 05/05/17 - a 5mm polyp in the transverse colon was resected. Angioectasia was found in ascending colon which was cauterized. Internal hemorrhoids were found along with hypertrophied anal papillae. Hematin was found in the entire colon. However, due to poor bowel prep, GI recommended a repeat colonoscopy within 3 months for better visualization. Cardiology, Dr Espinal, was consulted to treat his atrial fibrillatioin. He was rate controlled and monitored on telemetry. An echo was performed which showed LVF normal, EF normal, trace to mild aortic regurgitation and mitral regurgitation. Due to the anemia, his home medication of Eliquis 5mg po bid was stopped. However, upon discharge, it was discussed with GI and per GI there is no specific contraindication to resume eliquis for treatment of atrial fibrillation. A Chest Xray taken was suggestive of infiltrates thus the patient was treated with azithromycin 500mg ivpb qd and ceftriaxone 1g ivpb q12h. He was discharged on zithromax 250mg po qd to be taken for 3 days. His chronic conditions were treated by resuming his home medications. Discharge Exam - Head Exam Head Exam: ATRAUMATIC, NORMOCEPHALIC - Eye Exam Eye Exam: EOMI Pupil Exam: PERRL - ENT Exam ENT Exam: Mucous Membranes Moist - Neck Exam Neck exam: Normal Inspection - Respiratory Exam Respiratory Exam: Clear to PA & Lateral, NORMAL BREATHING PATTERN. absent: Rales, Rhonchi, Wheezes - Cardiovascular Exam Cardiovascular Exam: Irregular Rhythm, +S1, +S2. absent: Bradycardia, Tachycardia - GI/Abdominal Exam GI & Abdominal Exam: Normal Bowel Sounds, Soft. absent: Distended, Firm, Mass, Tenderness - Extremities Exam Additional comments: no pedal edema noted in upper or lower extremities - Neurological Exam Neurological exam: Alert, Oriented x3 - Psychiatric Exam Psychiatric exam: Flat Affect - Skin Skin Exam: Dry, Intact, Normal Color, Warm Discharge Plan - Discharge Medications Prescriptions: Azithromycin [Zithromax] 250 mg PO DAILY 3 Days #3 tab - Follow Up Plan Condition: FAIR Disposition: NURSING FACILITY MEDICAID CERT Instructions: Heart Failure (DC), Atrial Fibrillation (DC), Gastrointestinal Bleeding (DC), Colonoscopy (DC), Heart Healthy Diet (DC), Upper Endoscopy (DC), Anemia (DC) Additional Instructions: Patient is medically stable for discharge. In addition to your home medications, please take Zithromax 250mg 1 tablet by mouth once a day for 3 days. Please follow up with Gasteroenterologist, Dr Skip Lewis, in his office, an appointment is scheduled for 05/12/17 (phone: [phone]). He will have further recommendations regarding a repeat colonoscopy. There is no specific GI contraindication to resuming anti-coagulant therapy for treatment of atrial fibrillation. Therefore, please take your Eliquis 5mg by mouth twice a day as previously prescribed. Please make an appointment with your primary care doctor, Dr Marcus. A copy of your discharge summary will be faxed to him so he is aware of the treatments you received during this admission. Please resume your home medications in the meantime. Please return to the ED if symptoms return. Referrals: Stephan Lewis MD [Staff Provider] - Markel Marcus MD [Staff Provider] -
[2017-05-06 17:29] VITALS: BP 123/81; PULSE 97; TEMP 99
== END 2017-05-06 18:28 | DRG 377 ==
LOC: C.ER 17:40 → C.6T 21:44
PROVIDERS: ADMIT Family Medicine; ATTEND Family Medicine
PROC: 30233N1 Transfusion of Nonautologous Red Blood Cells into Peripheral Vein, Percutaneous Approach (ICD-10-PCS; 2017-04-30)
PROC: 0DJ08ZZ Inspection of Upper Intestinal Tract, Via Natural or Artificial Opening Endoscopic (ICD-10-PCS; 2017-05-02)
PROC: 02HV33Z Insertion of Infusion Device into Superior Vena Cava, Percutaneous Approach (ICD-10-PCS; 2017-05-02)
PROC: B548ZZA Ultrasonography of Superior Vena Cava, Guidance (ICD-10-PCS; 2017-05-02)
PROC: 0DBL8ZX Excision of Transverse Colon, Via Natural or Artificial Opening Endoscopic, Diagnostic (ICD-10-PCS; 2017-05-05)
PROC: 0D5K8ZZ Destruction of Ascending Colon, Via Natural or Artificial Opening Endoscopic (ICD-10-PCS; principal; 2017-05-05 13:30)
DX: K55.21 Angiodysplasia of colon with hemorrhage (principal); D62 Acute posthemorrhagic anemia; D12.3 Benign neoplasm of transverse colon; K29.60 Other gastritis without bleeding; K29.80 Duodenitis without bleeding; K64.8 Other hemorrhoids; J18.9 Pneumonia, unspecified organism; I11.0 Hypertensive heart disease with heart failure; I48.91 Unspecified atrial fibrillation; I50.9 Heart failure, unspecified; J44.0 Chronic obstructive pulmonary disease with (acute) lower respiratory infection; E11.9 Type 2 diabetes mellitus without complications; K59.09 Other constipation; I25.10 Atherosclerotic heart disease of native coronary artery without angina pectoris; N40.0 Benign prostatic hyperplasia without lower urinary tract symptoms; G47.30 Sleep apnea, unspecified; E78.5 Hyperlipidemia, unspecified; E78.00 Pure hypercholesterolemia, unspecified; F41.9 Anxiety disorder, unspecified; F31.9 Bipolar disorder, unspecified; M81.0 Age-related osteoporosis without current pathological fracture; Z87.891 Personal history of nicotine dependence

== ENCOUNTER 2017-06-26 06:44 | Day surgery (SDC) | payer MEDICARE, MEDICAID ==
[2017-06-26 07:08] VITALS: BMI 29.5
[2017-06-26] MEDS ORDERED: Lactated Ringer's 500 ML IV ONE (08:10)
--- NOTE | 2017-06-26 08:11 | CP.SDSHP ---
Same Day Surgery H & P - History Proposed Procedure: colonoscopy Pre-Op Diagnosis: anemia, blood in stool - Previous Medical/Surgical History Cardiac: Hypertension, Arrhythmia Endocrine/Metabolic: Obesity - Allergies Allergies: Allergies No Known Allergies Allergy (Verified 10/02/16 09:25) - Physical Exam General Appearance: NAD Vital Signs: Vital Signs 06/26/17 07:08 Temperature 97.8 F Pulse Rate 80 Respiratory 20 Rate Blood Pressure 117/75 O2 Sat by Pulse 99 Oximetry Mental Status: Alert & Oriented x3 Neuro: WNL Heart: WNL Lungs: WNL GI: WNL - {Optional Preform as Required} Abdomen: WNL - Impression Pt. Evaluated Today:Candidate for Anesthesia & Procedure: Yes - Date & Time Date: 06/26/17 Time: 08:11 Short Stay Discharge - Short Stay Discharge Admitting Diagnosis/Reason for Visit: BLOOD IN STOOL Disposition: HOME/ ROUTINE
[2017-06-26] MEDS ORDERED: Propofol 10 mg/ml Inj (20 ML) ONE (08:13)
[2017-06-26] MEDS ORDERED: Lidocaine Hydrochloride 5 ML INJ ONE (08:13)
[2017-06-26] MEDS ORDERED: Lactated Ringer's 500 ML IV SCH (08:30)
[2017-06-26] MEDS ORDERED: ePHEDrine 50 mg/ml Inj ONE (08:35)
[2017-06-26 09:21] VITALS: TEMP 98.7; O2SAT 100
[2017-06-26 10:12] VITALS: RESP 19
[2017-06-26 11:45] VITALS: BP 132/77; PULSE 87
== END 2017-06-26 11:15 | disposition home or self-care (01) ==
LOC: C.ENDO 06:44
PROVIDERS: ATTEND Internal Medicine Gastroenterology
DX: K64.8 Other hemorrhoids (principal); K92.1 Melena; D64.9 Anemia, unspecified
CPT/HCPCS: 45380; 88305; J2704; J3010; J7120